=== PATIENT | male | born 1955 | race Caucasian/White ===

== ENCOUNTER → 2016-08-23 | Outpatient (CLI) | payer OTHER ==
[2016-08-23 17:48] LABS: HEMATOCRIT 44.5 % (42-52); MEAN CELL VOLUME 89.9 fL (80-100); MEAN CORPUSCULAR HEMOGLOBIN 31.9 pg (25-34); MEAN CORPUSCULAR HGB CONC 35.5 g/dl (32-36); MEAN PLATELET VOLUME 10.8 fL (7.4-10.4); PLATELET COUNT 186 K/uL (130-400); RED BLOOD COUNT 4.95 M/uL (4.7-6.1); WHITE BLOOD COUNT 7.82 K/uL (4.8-10.8)
[2016-08-23 18:08] LABS: ALKALINE PHOSPHATASE 102 U/L (45-117); ALT/SGPT 19 U/L (12-78); AST/SGOT 11 U/L (15-37); BLOOD UREA NITROGEN 8 mg/dl (7-18); BUN/CREATININE RATIO 8.6 (10-20); CARBON DIOXIDE 27 mmol/L (21-32); CHLORIDE 106 mmol/L (98-107); CREATININE 0.96 mg/dl (0.60-1.40); GLUCOSE 101 mg/dl (70-99); POTASSIUM 3.9 mmol/L (3.5-5.1); SODIUM 139 mmol/L (136-145)
[2016-08-23 18:11] LABS: THYROID STIMULATING HORMONE 0.751 uIu/ml (0.300-4.500)
== END | disposition home or self-care (01) ==
LOC: C.LABMFLN 14:02
PROVIDERS: ATTEND Internal Medicine Cardiovascular Disease
DX: I47.2 Ventricular tachycardia (principal); I49.8 Other specified cardiac arrhythmias; I25.5 Ischemic cardiomyopathy; I25.10 Atherosclerotic heart disease of native coronary artery without angina pectoris; E78.5 Hyperlipidemia, unspecified

== ENCOUNTER 2021-04-17 12:15 | Inpatient (IN) ==
--- NOTE | 2021-04-17 12:45 | Emergency Department Note ---
History of Present Illness General Chief complaint: Abdominal Pain Stated complaint: MASS NEAR PANCREAS, ABDOMINAL PAIN Time Seen by Provider: 04/17/21 12:39 Source: patient Mode of arrival: ambulatory Limitations: no limitations History of Present Illness Maximum Pain Intensity: 1 This patient is a 66-year-old male who presents to the emergency department for evaluation of a pancreatic mass found on outpatient CT. The patient states that over the past 1 month, he has noticed that his stools have been pale in color and floating. He has also noticed about a 20 lb weight loss as well as fatigue, nausea, and decreased appetite. He denies any abdominal pain until today after eating breakfast, when he noticed some upper abdominal pain. He saw his PCP yesterday, who ordered labs and a CT scan. He received a call that the CT showed a mass near his pancreas. He does state that some other people have noticed his skin has been more yellow in color over the past week. He reports a cardiac history. He states he quit drinking alcohol 1 month ago, but prior to that drank 4-5 drinks a few times a week. Home Medications Medication Instructions Recorded Confirmed Type aspirin 81 mg tablet,delayed 81 mg PO DAILY #90 tab 11/10/20 04/17/21 Rx release (Ecotrin Low Strength) atorvastatin 80 mg tablet 80 mg PO DAILY #90 tab 11/10/20 04/17/21 Rx nitroglycerin 0.4 mg sublingual 0.4 mg SL Q5M PRN #20 tab 11/10/20 04/17/21 Rx tablet (Nitrostat) sacubitril 24 mg-valsartan 26 mg 1 tab PO BID #180 tab 11/10/20 04/17/21 Rx tablet (Entresto) ticagrelor 90 mg tablet (Brilinta) 90 mg PO BID #180 tab 11/10/20 04/17/21 Rx Allergies Allergy/AdvReac Type Severity Reaction Status Date / Time No Known Drug Allergies Allergy Verified 04/17/21 15:08 Past Med/Surg History Medical History Acute ST elevation myocardial infarction (STEMI) involving left anterior descending coronary artery AIVR (accelerated idioventricular rhythm) CAD (coronary artery disease) Carpal tunnel syndrome Displacement of cervical intervertebral disc without myelopathy Dyslipidemia Hearing loss, bilateral Ischemic cardiomyopathy Ventricular tachycardia Surgical History H/O cardiac catheterization History of appendectomy Hx of colonoscopy S/P coronary artery stent placement Family History Mother Myocardial infarction Diabetes Father Colorectal cancer Diabetes Social History Smoking Status: Current every day smoker Tobacco Type: Cigarettes Cigarettes Per Day: 40; Second Hand Exposure: Yes; Do You Dip or Chew Tobacco: No; Hx Alcohol Use: Yes Hx Substance Use: No Preferred Language: Turkish Communication Ability: Effective Black Top Roller Required: No Beliefs That Will Affect Care: None marital status: Single Current Living Situation: Alone current occupational status: employed 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 Feels Safe at Home: Yes Safety Concerns: Feels Safe At This Time Childhood Exposure to Second-Hand Smoke: Yes Dental Care, Regularly: Yes Sunscreen Use: No Assistive Devices: None Review of Systems A total of 10 systems reviewed and were otherwise negative Physical Exam Vital Signs Vital Signs - 24 hr 04/17/21 12:24 Temperature 37 C Temperature Source Temporal Artery Scan Pulse Rate 75 Respiratory Rate 18 Blood Pressure 108/56 L Blood Pressure Mean 73 Blood Pressure Position Sitting Pulse Oximetry 99 Oxygen Delivery Method Room Air Sepsis Recent Fever Within 48 Hours No Sepsis New/Unexplained Change in Mental Status No Sepsis Action Taken by Nursing No Action Required VITALS: Vitals are noted on the nurse's note and reviewed by myself. Vital signs stable. GENERAL: This is a 66-year-old male, cachectic appearing. SKIN: Jaundice noted. EARS: External auditory canals clear, tympanic membranes pearly serrato without erythema or effusion bilaterally. EYES: Pupils equal round and reactive to light and accommodation. Scleral icterus noted. MOUTH: Mucous membranes moist. NECK: Supple without nuchal rigidity. No lymphadenopathy. HEART: Regular rate and rhythm without murmurs gallops or rubs. LUNGS: Clear to auscultation bilaterally without wheezes, rales or rhonchi. ABDOMEN: Positive bowel sounds x 4. Soft, nontender to palpation. NEURO: Patient was alert and oriented to person place and time. Course Administered Medications Aspirin (Aspirin 81 Mg Ectab) 81 mg PO DAILY FAIZAN Stop: 05/18/21 08:59 Last Admin: 04/18/21 08:01 Dose: 81 mg Documented by: [id number] Enoxaparin Sodium (Enoxaparin Inj 40 Mg/0.4 Ml Syr) 40 mg SQ Q24H [facility] Stop: 05/17/21 19:14 Last Admin: 04/17/21 20:09 Dose: 40 mg Documented by: [id number] Miscellaneous (Remove Nicoderm Patch) 1 ea N/A DAILY@[id number] [facility] Stop: 05/18/21 08:58 Last Admin: 04/18/21 11:30 Dose: 1 ea Documented by: [id number] Nicotine (Nicotine 21 Mg/24 Hr Tdsy) 21 mg TD QAM [facility] Stop: 05/17/21 16:14 Last Admin: 04/18/21 11:29 Dose: 21 mg Documented by: [id number] Admin: 04/17/21 16:35 Dose: 21 mg Documented by: [id number] Sacubitril/Valsartan (Valsartan/Sacubitril 26/24mg Tab) 1 tab PO BID [facility] Stop: 05/17/21 20:59 Last Admin: 04/18/21 08:02 Dose: 1 tab Documented by: [id number] Admin: 04/17/21 20:09 Dose: 1 tab Documented by: [id number] Ticagrelor (Ticagrelor 90 Mg Tab) 90 mg PO BID [facility] Stop: 05/17/21 20:59 Last Admin: 04/18/21 08:02 Dose: 90 mg Documented by: [id number] Admin: 04/17/21 20:09 Dose: 90 mg Documented by: [id number] Discontinued Medications Ioversol (Optiray 320 100ml) 94 ml IV ONCE ONE Stop: 04/17/21 15:41 Last Admin: 04/17/21 15:42 Dose: 94 ml Documented by: [id number] Medical Decision Making Differential Diagnosis Differential diagnosis includes malignancy, pancreatitis, infection, cholecystitis, ascending cholangitis, among others. Home Medications Current Medication List: was personally reviewed by me Laboratory Data Attestation: I reviewed the patient's lab results. Result diagrams: 04/18/21 07:56 04/18/21 07:56 Lab Results 04/17/21 04/17/21 04/17/21 Range/Units 12:56 12:56 12:56 WBC 5.80 (4.8-10.8) K/uL RBC 3.75 L (4.7-6.1) M/uL Hgb 11.6 L (14.0-18.0) g/dL Hct 34.3 L (42-52) % MCV 91.5 (80-100) fL MCH 30.9 (25-34) pg MCHC 33.8 (32-36) g/dL RDW Std Deviation 56.2 H (36.4-46.3) fL RDW Coeff of Lyubov 16.9 H (11.5-14.5) % Plt Count 221 (130-400) K/uL MPV 11.7 H (7.4-10.4) fL Immature Gran % (Auto) 0.2 % Neut % (Auto) 74.8 % Lymph % (Auto) 20.2 % Foster % (Auto) 2.9 % Eos % (Auto) 1.4 % Baso % (Auto) 0.5 % Neut # (Auto) 4.34 (1.4-6.5) K/uL Lymph # (Auto) 1.17 L (1.2-3.4) K/uL Foster # (Auto) 0.17 (0.11-0.59) K/uL Eos # (Auto) 0.08 (0-0.5) K/uL Baso # (Auto) 0.03 (0-0.2) K/uL Immature Gran # (Auto) 0.01 (0.00-0.02) K/uL PT Cancelled INR Cancelled APTT Cancelled PTT Ratio Cancelled Sodium Cancelled Potassium Cancelled Chloride Cancelled Carbon Dioxide Cancelled Anion Gap Cancelled BUN Cancelled Creatinine Cancelled Est Cr Clr Drug Dosing Cancelled Est GFR ( Amer) Cancelled Est GFR (Non-Af Amer) Cancelled BUN/Creatinine Ratio Cancelled Glucose Cancelled Osmolality (280-300) mOsm/kg Calcium Cancelled Total Bilirubin Cancelled Direct Bilirubin Cancelled AST Cancelled ALT Cancelled Alkaline Phosphatase Cancelled Total Protein Cancelled Albumin Cancelled Lipase Cancelled Urine Color Urine Appearance (Clear) Urine pH (4.5-7.5) Ur Specific [place] (1.000-1.030) Urine Protein (Negative) Urine Glucose (UA) (Negative) Urine Ketones (Negative) Urine Blood (Negative) Urine Nitrite (Negative) Urine Bilirubin (Negative) Urine Urobilinogen (Negative) Ur Leukocyte Esterase (Negative) Urine RBC (0-4) /hpf Urine WBC (0-5) /hpf Ur Epithelial Cells (0-5) /lpf Urine Bacteria (Negative) 04/17/21 04/17/21 04/17/21 Range/Units 12:56 13:43 13:43 WBC (4.8-10.8) K/uL RBC (4.7-6.1) M/uL Hgb (14.0-18.0) g/dL Hct (42-52) % MCV (80-100) fL MCH (25-34) pg MCHC (32-36) g/dL RDW Std Deviation (36.4-46.3) fL RDW Coeff of Lyubov (11.5-14.5) % Plt Count (130-400) K/uL MPV (7.4-10.4) fL Immature Gran % (Auto) % Neut % (Auto) % Lymph % (Auto) % Foster % (Auto) % Eos % (Auto) % Baso % (Auto) % Neut # (Auto) (1.4-6.5) K/uL Lymph # (Auto) (1.2-3.4) K/uL Foster # (Auto) (0.11-0.59) K/uL Eos # (Auto) (0-0.5) K/uL Baso # (Auto) (0-0.2) K/uL Immature Gran # (Auto) (0.00-0.02) K/uL PT 11.0 INR 1.1 APTT 25.6 PTT Ratio 1.0 Sodium 126 L Potassium Chloride 93 L Carbon Dioxide 24 Anion Gap 9 BUN 15 Creatinine 0.78 Est Cr Clr Drug Dosing 77.5 Est GFR ( Amer) 109.8 Est GFR (Non-Af Amer) 94.7 BUN/Creatinine Ratio 19.2 Glucose 170 H Osmolality (280-300) mOsm/kg Calcium 9.3 Total Bilirubin 21.2 H Direct Bilirubin 12.7 H AST ALT 271 H Alkaline Phosphatase 1500 H Total Protein 6.6 Albumin 3.2 L Lipase Urine Color Jory Urine Appearance Clear (Clear) Urine pH (4.5-7.5) Ur Specific [place] 1.022 (1.000-1.030) Urine Protein (Negative) Urine Glucose (UA) (Negative) Urine Ketones (Negative) Urine Blood (Negative) Urine Nitrite (Negative) Urine Bilirubin (Negative) Urine Urobilinogen (Negative) Ur Leukocyte Esterase (Negative) Urine RBC 0-4 (0-4) /hpf Urine WBC 5-10 H (0-5) /hpf Ur Epithelial Cells 5-10 H (0-5) /lpf Urine Bacteria 1+ H (Negative) 04/17/21 04/17/21 Range/Units 13:43 14:50 WBC (4.8-10.8) K/uL RBC (4.7-6.1) M/uL Hgb (14.0-18.0) g/dL Hct (42-52) % MCV (80-100) fL MCH (25-34) pg MCHC (32-36) g/dL RDW Std Deviation (36.4-46.3) fL RDW Coeff of Lyubov (11.5-14.5) % Plt Count (130-400) K/uL MPV (7.4-10.4) fL Immature Gran % (Auto) % Neut % (Auto) % Lymph % (Auto) % Foster % (Auto) % Eos % (Auto) % Baso % (Auto) % Neut # (Auto) (1.4-6.5) K/uL Lymph # (Auto) (1.2-3.4) K/uL Foster # (Auto) (0.11-0.59) K/uL Eos # (Auto) (0-0.5) K/uL Baso # (Auto) (0-0.2) K/uL Immature Gran # (Auto) (0.00-0.02) K/uL PT INR APTT PTT Ratio Sodium Potassium Cancelled Chloride Carbon Dioxide Anion Gap BUN Creatinine Est Cr Clr Drug Dosing Est GFR ( Amer) Est GFR (Non-Af Amer) BUN/Creatinine Ratio Glucose Osmolality 287 (280-300) mOsm/kg Calcium Total Bilirubin Direct Bilirubin AST Cancelled ALT Alkaline Phosphatase Total Protein Albumin Lipase Cancelled Urine Color Urine Appearance (Clear) Urine pH (4.5-7.5) Ur Specific [place] (1.000-1.030) Urine Protein (Negative) Urine Glucose (UA) (Negative) Urine Ketones (Negative) Urine Blood (Negative) Urine Nitrite (Negative) Urine Bilirubin (Negative) Urine Urobilinogen (Negative) Ur Leukocyte Esterase (Negative) Urine RBC (0-4) /hpf Urine WBC (0-5) /hpf Ur Epithelial Cells (0-5) /lpf Urine Bacteria (Negative) Imaging Data Attestation: I personally reviewed and interpreted this imaging study as follows: Radiologist's Impression: ABDOMEN AND PELVIS CT WITH IV CONTRAST CT DOSE: 472.54 mGy.cm HISTORY: Acutely elevated LFTs. Reported pancreatic head mass. Elevated LFTs, pancreatic mass seen on noncon CT TECHNIQUE: Multiaxial CT images of the abdomen and pelvis were performed following the IV administration of 94 cc of Optiray, A dose lowering technique was utilized adhering to the principles of ALARA. COMPARISON STUDY: Chest CT of same day FINDINGS: Mural fibrofatty changes with myocardial thinning of the left ventricular apex. Coronary artery calcifications. Mild subsegmental bibasilar atelectasis. No pneumatosis or pneumoperitoneum. Unremarkable spleen. Bilateral renal gland thickening suggestive of hyperplasia. There is marked intrahepatic and extrahepatic biliary ductal dilation with the common bile duct measuring up to 2 cm transversely. The gallbladder is distended with mild wall thickening. No hepatic mass identified. Patency of the hepatic and portal veins. There is an ill-defined hypodense pancreatic head mass measuring approximately 2.0 x 1.6 x 1.7 cm on image 110 series 7. This obstructs the pancreatic and common bile ducts. Extreme pancreatic ductal dilation measures 7 mm. Mildly prominent portacaval lymph nodes measure up to 10 mm. There is a 1.3 x 1.1 cm gastrohepatic lymph node. Mild narrowing of the portal splenic confluence at the level of the pancreatic head mass without occlusion. The mass does not involve the superior mesenteric artery. There is mild peripancreatic and lesser sac edema. Unremarkable kidneys. No hydronephrosis. Mild circumferential urinary bladder wall thickening with perivesicular stranding. Prostamegaly. Atherosclerosis of the aorta without aneurysm. Unremarkable IVC. No bowel obstruction. Mild distention of the stomach. Wall thickening of the sigmoid and rectum with partial distention. Mild fecal retention. The appendix is reportedly surgically absent. Mild generalized body wall edema. No acute fracture or suspicious bone lesion identified. Moderate osteoarthritis of the hips. Bilateral os acetabula. IMPRESSION: 1. Ill-defined hypodense pancreatic head mass measuring up to 2 cm is suggestive of adenocarcinoma. This results in obstruction of the pancreatic and common bile ducts. No evidence of vascular encasement or occlusion. Gastroenterology consultation with ERCP and tissue sampling recommended. 2. Mildly enlarged portacaval and gastrohepatic adenopathy, suspicious for metastatic disease. 3. Additional findings as above. CT chest diagnostic w con CLINICAL HISTORY: Pancreatic mass on outpatient ct TECHNIQUE: Multidetector row helical CT of the chest was performed. Coronal and sagittal reformations were obtained. Automated dose lowering techniques and/or adjustment according to patient size were utilized for this exam. Comparison: None available at the time of this dictation. FINDINGS: Lungs and pleura: Atelectasis versus scarring is seen in the dependent portions of the lungs. Biapical scarring and diffuse emphysematous changes are seen. Intraparenchymal lymph nodes are noted in the fissures. There are a few tiny pulmonary nodules measuring 4 mm in the right upper lobe (series 6 image 60) and 3 mm in the right upper lobe (image 81). Heart and pericardium: Cardiomegaly is seen with biatrial enlargement. Vessels: The pulmonary trunk is enlarged measuring 31 mm in diameter. No evidence of pulmonary embolism within the limits of a noncontrast exam. Mediastinum and cami: Subcentimeter lymph nodes are seen. Chest wall and lower neck: Unremarkable. Abdomen: For findings below the diaphragm, please refer to CT of the abdomen dated the same. Bones: Degenerative changes in the thoracic spine. IMPRESSION: 1. A few pulmonary nodules are seen measuring up to 4 mm. 2. No lymphadenopathy is seen. 3. Emphysema and pulmonary hypertension. MDM Narrative Continuous hall monitor: Order was placed for continuous hall monitor. Patient was placed on the hall monitor. Patient was noted to be in a normal sinus rhythm at an initial rate of 70 bpm. The patient is a 66-year-old male who presents today for further evaluation of a pancreatic mass found on outpatient CT. Patient presented to his PCP yesterday with pale and floating stools as well as weight loss and jaundice. He had a noncontrast CT of the abdomen/pelvis which showed a tumor of the pancreatic head. CT of the abdomen/pelvis and chest with IV contrast were performed today and do show a pancreatic tumor consistent with adenocarcinoma as well as evidence of metastasis. Patient has elevated LFTs, with total bilirubin 21.2. He is hyponatremic. GI was consulted and advised keeping the patient n.p.o. after midnight for possible EUS/ERCP tomorrow. Case was discussed with the [facility] service for admission. Impression & Plan Pancreatic mass Discharge Plan Visit Data Chief Complaint: Abdominal Pain Stated Complaint: MASS NEAR PANCREAS, ABDOMINAL PAIN ED Provider: Dom Penn ED Midlevel Provider: Marzena Hinkle Discharge Problem: Pancreatic mass Patient Disposition: Admitted As Inpatient Discharge Instructions Interventions: ED Discharge Assessment Last Done: 04/17/21 18:01
[2021-04-17 13:18] LABS: Basophils # (auto) 0.03 K/uL (0-0.2); Basophils % (auto) 0.5 %; Eosinophils # (auto) 0.08 K/uL (0-0.5); Eosinophils % (auto) 1.4 %; Hematocrit (blood only) 34.3 % (42-52); Hemoglobin 11.6 g/dL (14.0-18.0); Immature Granulocytes # (auto) 0.01 K/uL (0.00-0.02); Immature Granulocytes % (auto) 0.2 %; Lymphocytes # (auto) 1.17 K/uL (1.2-3.4); Lymphocytes % (auto) 20.2 %; Mean Corpuscular Hemoglobin 30.9 pg (25-34); Mean Corpuscular Hgb Conc 33.8 g/dL (32-36); Mean Corpuscular Volume 91.5 fL (80-100); Mean Platelet Volume 11.7 fL (7.4-10.4); Monocytes # (auto) 0.17 K/uL (0.11-0.59); Monocytes % (auto) 2.9 %; Neutrophils # (auto) 4.34 K/uL (1.4-6.5); Neutrophils % (auto) 74.8 %; Platelet Count 221 K/uL (130-400); RDW Coefficient of Variation 16.9 % (11.5-14.5); RDW Standard Deviation 56.2 fL (36.4-46.3); Red Blood Count 3.75 M/uL (4.7-6.1)
[2021-04-17 13:23] LABS: Appearance Urine Clear (Clear); Color Urine Amber
[2021-04-17 13:24] LABS: Specific Gravity Urine 1.022 (1.000-1.030)
[2021-04-17 13:43] LABS: RBC Urine 0-4 /hpf (0-4)
[2021-04-17 13:44] LABS: Bacteria Urine 1+ (Negative)
[2021-04-17 14:10] LABS: INR 1.1 (0.9-1.1); Partial Thromboplastin Time 25.6 Seconds (21.0-31.0)
[2021-04-17 14:39] LABS: Albumin Level 3.2 gm/dl (3.4-5.0); BUN Creatinine Ratio 19.2 (10-20); Bilirubin,Total 21.2 mg/dl (0.2-1.0); Calcium 9.3 mg/dl (8.5-10.1); Creatinine Clr Calc Pharmacy 77.5 ml/min; Est GFR (African American) 109.8 ml/min; Est GFR (Non-African American) 94.7 ml/min; Total Protein 6.6 gm/dl (6.0-8.3)
--- NOTE | 2021-04-17 14:39 | Emergency Department Note ---
ED Visit Note I have personally seen and evaluated the patient with the physician pediatric physical therapy assistant. I agree with the diagnostic/management decisions and have personally been involved in these decisions and agree with the diagnosis. .
[2021-04-17 15:16] LABS: Bilirubin Direct 12.7 mg/dl (0-0.2)
[2021-04-17] MEDS ORDERED: OPTIRAY 320 100ml IV ONE (15:40)
--- NOTE | 2021-04-17 15:47 | History & Physical Report ---
Date of Service April 17, 2021 Assessment & Plan (1) Pancreatic mass: Plan: - -GI consulted regarding CBD, PD obstruction 2/2 pancreatic mass, appreciate their recommendations. (2) Hyponatremia: Plan: -Na+ 126 today, patient asymptomatic. No nausea, vomiting, weakness, lethargy, confusion. -Suspect due to SIADH of malignancy -We will fluid restrict for now, recheck BMP in a.m. Serum osmolality, urine sodium, urine osmolality pending (3) CAD (coronary artery disease): Plan: -s/p (4) Dyslipidemia: (5) Hyperglycemia: Plan: -Elevated at 170 on a reportedly fasting BMP, without the diagnosis of diabetes. -Continue to monitor. (6) Tobacco abuse: Plan: -Nicotine patch ordered. -Counseled on smoking cessation. History of Present Illness Chief Complaint: abdominal mass on outpatient CT Primary Care Provider: Cade Deal MD Patient is a 66-year-old male with a past medical history of CAD, ischemic cardiomyopathy, tobacco use and alcohol use who presents today for evaluation of pancreatic mass found on an outpatient CT. Over the past month, patient has experienced extreme fatigue, a 20 pound weight loss, as well as frequent pale, floating stools and dark urine. He also reports an occasional throbbing pain in his left upper quadrant after meals. Friends also pointed out that his skin and eyes seemed to be yellow. This had prompted him to schedule a visit with his PCP who ordered an abdominal CT without contrast as well as several labs yesterday, 04/16. Patient received a call from PCP last evening that there is a pancreatic mass seen on scan and was referred to the ED for further evaluation. A repeat abdominal CT with contrast was performed in the ED revealed an ill- defined hypodense pancreatic head mass measuring up to 2 cm, suggestive of adenocarcinoma. This results in obstruction of the pancreatic and common bile ducts. No evidence of vascular encasement or occlusion. Gastroenterology consultation with ERCP and tissue sampling recommended. Mildly enlarged hawk caval gastropathic adenopathy, suspicious for metastatic disease. Chest CT was also ordered, which revealed a few pulmonary nodules seen measuring up to 4 mm, no lymphadenopathy seen, emphysema and pulmonary hypertension noted. Patient smokes 1 to 2 packs of cigarettes per day and had previously been drinking 3-4 drinks on most evenings, however has not had a drink in 1 month. Allergies Allergy/AdvReac Type Severity Reaction Status Date / Time No Known Drug Allergies Allergy Verified 04/17/21 15:08 Home Medications Medication Instructions Recorded Confirmed Type aspirin 81 mg tablet,delayed 81 mg PO DAILY #90 tab 11/10/20 04/17/21 Rx release (Ecotrin Low Strength) atorvastatin 80 mg tablet 80 mg PO DAILY #90 tab 11/10/20 04/17/21 Rx nitroglycerin 0.4 mg sublingual 0.4 mg SL Q5M PRN #20 tab 11/10/20 04/17/21 Rx tablet (Nitrostat) sacubitril 24 mg-valsartan 26 mg 1 tab PO BID #180 tab 11/10/20 04/17/21 Rx tablet (Entresto) ticagrelor 90 mg tablet (Brilinta) 90 mg PO BID #180 tab 11/10/20 04/17/21 Rx Past Med/Surg History Medical History Acute ST elevation myocardial infarction (STEMI) involving left anterior descending coronary artery AIVR (accelerated idioventricular rhythm) CAD (coronary artery disease) Carpal tunnel syndrome Displacement of cervical intervertebral disc without myelopathy Dyslipidemia Hearing loss, bilateral Ischemic cardiomyopathy Ventricular tachycardia Surgical History H/O cardiac catheterization History of appendectomy Hx of colonoscopy S/P coronary artery stent placement Family History Mother Myocardial infarction Diabetes Father Colorectal cancer Diabetes Social History Smoking Status: Current every day smoker Tobacco Type: Cigarettes Second Hand Exposure: No; Hx Alcohol Use: Yes Hx Substance Use: No Preferred Language: Thai Communication Ability: Effective [employer] Director Required: No Beliefs That Will Affect Care: None marital status: Single Current Living Situation: Alone current occupational status: employed 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 Feels Safe at Home: Yes Childhood Exposure to Second-Hand Smoke: Yes Dental Care, Regularly: Yes Sunscreen Use: No Review of Systems Review of Systems: Constitutional: Reports generalized fatigue over the past month; no fever, sweats or chills Eyes: No diplopia, no worsening or blurred vision ENT: normal hearing, no trouble swallowing Respiratory: No cough, sputum, dyspnea at rest or on exertion Cardiovascular: No chest pain, tightness or palpitations Abdomen: Reports postprandial discomfort, zaid colored stools, and dark urine; no pain, nausea, or vomiting Musculoskeletal: No joint pain, calf pain, swelling Neurologic: No weakness, numbness/tingling, or balance problems Psychiatric: No anxiety or depression Skin: Jaundice in the past week; no rash Physical Exam Physical Exam: General: overt jaundice and icterus; awake, alert, no apparent distress Head: Normocephalic, atraumatic ENT: Icterus present, PERRL, EOMI, no pharyngeal exudate, mucous membranes moist Chest: Clear to auscultation, on room air, no adventitious breath sounds Cardiac: Regular rate and rhythm, no murmur, no JVD, normal peripheral pulses, good capillary refill Abdominal: NABS x 4 quadrants, soft, nontender to palpation, no rebound, guarding or tenderness Extremities: Normal inspection, no peripheral edema or erythema, calfs nontender to palpation Psych: Normal mood and affect Neuro: AAO x 3, strength intact bilaterally and rated 5/5, no motor deficits, speech is clear, no peripheral sensory deficits Skin: Overt jaundice Results & Data Results & Data ([facility]) Vital Signs (Past 12 Hours) Vital Signs Temp Pulse Pulse Resp BP BP Pulse Ox 04/17/21 13:48 74 17 106/59 L 100 04/17/21 12:24 37 C 75 18 108/56 L 99 Laboratory Results Abnormal lab results 04/17/21 04/17/21 04/17/21 Range/Units 12:56 12:56 13:43 RBC 3.75 L (4.7-6.1) M/uL Hgb 11.6 L (14.0-18.0) g/dL Hct 34.3 L (42-52) % RDW Std Deviation 56.2 H (36.4-46.3) fL RDW Coeff of Lyubov 16.9 H (11.5-14.5) % MPV 11.7 H (7.4-10.4) fL Lymph # (Auto) 1.17 L (1.2-3.4) K/uL Sodium 126 L (136-145) mmol/L Chloride 93 L (98-107) mmol/L Glucose 170 H (70-99(Fasting)) mg/dl Total Bilirubin 21.2 H (0.2-1.0) mg/dl Direct Bilirubin 12.7 H (0-0.2) mg/dl ALT 271 H (7-52) U/L Alkaline Phosphatase 1500 H (34-104) U/L Albumin 3.2 L (3.4-5.0) gm/dl Urine WBC 5-10 H (0-5) /hpf Ur Epithelial Cells 5-10 H (0-5) /lpf Urine Bacteria 1+ H (Negative) Diagnostic Findings Abdomen/Pelvis CT 04/17/21 12:[address] WITH IV CONTRAST CT DOSE: 472.54 mGy.cm HISTORY: Acutely elevated LFTs. Reported pancreatic head mass. Elevated LFTs, p ancreatic mass seen on noncon CT TECHNIQUE: Multiaxial CT images of the abdomen and pelvis were performed following the IV administration of 94 cc of Optiray, A dose lowering technique was utilized adhering to the principles of ALARA. COMPARISON STUDY: Chest CT of same day FINDINGS: Mural fibrofatty changes with myocardial thinning of the left ventricular apex. Coronary artery calcifications. Mild subsegmental bibasilar atelectasis. No pneumatosis or pneumoperitoneum. Unremarkable spleen. Bilateral renal gland thickening suggestive of hyperplasia. There is marked intrahepatic and extrahepatic biliary ductal dilation with the common bile duct measuring up to 2 cm transversely. The gallbladder is distended with mild wall thickening. No hepatic mass identified. Patency of the hepatic and portal veins. There is an ill-defined hypodense pancreatic head mass measuring approximately 2.0 x 1.6 x 1.7 cm on image 110 series 7. This obstructs the pancreatic and common bile ducts. Extreme pancreatic ductal dilation measures 7 mm. Mildly prominent portacaval lymph nodes measure up to 10 mm. There is a 1.3 x 1.1 cm gastrohepatic lymph node. Mild narrowing of the portal splenic confluence at the level of the pancreatic head mass without occlusion. The mass does not involve the superior mesenteric artery. There is mild peripancreatic and lesser sac edema. Unremarkable kidneys. No hydronephrosis. Mild circumferential urinary bladder wall thickening with perivesicular stranding. Prostamegaly. Atherosclerosis of the aorta without aneurysm. Unremarkable IVC. No bowel obstruction. Mild distention of the stomach. Wall thickening of the sigmoid and rectum with partial distention. Mild fecal retention. The appendix is reportedly surgically absent. Mild generalized body wall edema. No acute fracture or suspicious bone lesion identified. Moderate osteoarthritis of the hips. Bilateral os acetabula. IMPRESSION: 1. Ill-defined hypodense pancreatic head mass measuring up to 2 cm is suggestive of adenocarcinoma. This results in obstruction of the pancreatic and common bile ducts. No evidence of vascular encasement or occlusion. Gastroenterology consultation with ERCP and tissue sampling recommended. 2. Mildly enlarged portacaval and gastrohepatic adenopathy, suspicious for metastatic disease. 3. Additional findings as above. ACT 112: Negative or not required by law. The above report was generated using voice recognition software. It may contain grammatical, syntax or spelling errors. Electronically signed by: Jacoby Adler M.D. 04/17/2021 4:[address] 04/17/21 12:59 CT chest diagnostic w con CLINICAL HISTORY: Pancreatic mass on outpatient ct TECHNIQUE: Multidetector row helical CT of the chest was performed. Coronal and sagittal reformations were obtained. Automated dose lowering techniques and/or adjustment according to patient size were utilized for this exam. Comparison: None available at the time of this dictation. FINDINGS: Lungs and pleura: Atelectasis versus scarring is seen in the dependent portions of the lungs. Biapical scarring and diffuse emphysematous changes are seen. Intraparenchymal lymph nodes are noted in the fissures. There are a few tiny pulmonary nodules measuring 4 mm in the right upper lobe (series 6 image 60) and 3 mm in the right upper lobe (image 81). Heart and pericardium: Cardiomegaly is seen with biatrial enlargement. Vessels: The pulmonary trunk is enlarged measuring 31 mm in diameter. No evidence of pulmonary embolism within the limits of a noncontrast exam. Mediastinum and cami: Subcentimeter lymph nodes are seen. Chest wall and lower neck: Unremarkable. Abdomen: For findings below the diaphragm, please refer to CT of the abdomen dated the same. Bones: Degenerative changes in the thoracic spine. IMPRESSION: 1. A few pulmonary nodules are seen measuring up to 4 mm. 2. No lymphadenopathy is seen. 3. Emphysema and pulmonary hypertension. Medications Administered Current Medications Miscellaneous (Remove Nicoderm Patch) 1 ea N/A [id number] [facility] Stop: 05/18/21 08:58 Nicotine (Nicotine 21 Mg/24 Hr Tdsy) 21 mg TD QAM [facility] Stop: 05/17/21 16:14 Code Status & VTE Plan Code Status Full code Supervising Physician Co-Signing Physician Notes Patient seen and examined, chart reviewed, case discussed with Kasie Ribeiro and I agree with the assessment and plan as above except as otherwise noted General: A&Ox3. NAD. Cooperative. Severe jaundice, scleral icterus is present. HEENT: Atraumatic, normocephalic. Vision/hearing grossly intact. Pulm: CTAB A&P. -wheezes, -rales, -rhonchi. Symmetrical chest rise. No increase in work of breathing. No respiratory distress. Cardiac: RRR, -mrg. Radial pulses intact and symmetrical. Abdominal: Nontender, nondistended, soft. BS present. Labs and images reviewed Dom is a 66-year-old male who presented to the emergency department with concern of pale floating stools and to was found to have 20 pound weight loss, nausea, decreased appetite, and jaundice. Outpatient CT showed pancreatic mass, he is urged for additional treatment with profound transaminitis. No alcohol use in the previous month. CTA/P with contrast during ER work-up shows ill- defined hypodense pancreatic head mass measuring up to 2 cm consistent with adenocarcinoma, patient has obstruction of the pancreatic and common bile ducts consistent with profound transaminitis and hyperbilirubinemia appreciated (T bili 21, AST greater than 388, ALT 271, alk phos 1500). GI has been consulted for ERCP plus/minus EUS. CT of the chest does show pulmonary nodules measuring up to 4 mm. Agree with plan/management as above, n.p.o. pending procedural intervention. PG Care Time/CCT Total # of Minutes Spent Total Time Spent with Patient: Total time spent is greater than 50% in coordination of care (as documented) at patient's floor/unit and/or counseling patient: Coding Level of Care Code None Diagnoses Dyslipidemia E78.5 CAD (coronary artery disease) I25.10 Hyponatremia E87.1 Pancreatic mass K86.89 Tobacco abuse Z72.0 Hyperglycemia R73.9
--- NOTE | 2021-04-17 16:04 | CT Scan Report ---
ABDOMEN AND PELVIS CT WITH IV CONTRAST CT DOSE: 472.54 mGy.cm HISTORY: Acutely elevated LFTs. Reported pancreatic head mass. Elevated LFTs, pancreatic mass seen o n noncon CT TECHNIQUE: Multiaxial CT images of the abdomen and pelvis were performed following the IV administrat ion of 94 cc of Optiray, A dose lowering technique was utilized adhering to the principles of ALARA. COMPARISON STUDY: Chest CT of same day FINDINGS: Mural fibrofatty changes with myocardial thinning of the left ventricular apex. Coronary ar walt calcifications. Mild subsegmental bibasilar atelectasis. No pneumatosis or pneumoperitoneum. Unr emarkable spleen. Bilateral renal gland thickening suggestive of hyperplasia. There is marked intrahe patic and extrahepatic biliary ductal dilation with the common bile duct measuring up to 2 cm transve rsely. The gallbladder is distended with mild wall thickening. No hepatic mass identified. Patency of the hepatic and portal veins. There is an ill-defined hypodense pancreatic head mass measuring approximately 2.0 x 1.6 x 1.7 cm on image 110 series 7. This obstructs the pancreatic and common bile ducts. Extreme pancreatic ductal di lation measures 7 mm. Mildly prominent portacaval lymph nodes measure up to 10 mm. There is a 1.3 x 1 .1 cm gastrohepatic lymph node. Mild narrowing of the portal splenic confluence at the level of the p ancreatic head mass without occlusion. The mass does not involve the superior mesenteric artery. Ther e is mild peripancreatic and lesser sac edema. Unremarkable kidneys. No hydronephrosis. Mild circumferential urinary bladder wall thickening with pe rivesicular stranding. Prostamegaly. Atherosclerosis of the aorta without aneurysm. Unremarkable IVC. No bowel obstruction. Mild distention of the stomach. Wall thickening of the sigmoid and rectum with partial distention. Mild fecal retention. The appendix is reportedly surgically absent. Mild general ized body wall edema. No acute fracture or suspicious bone lesion identified. Moderate osteoarthritis of the hips. Bilateral os acetabula. IMPRESSION: 1. Ill-defined hypodense pancreatic head mass measuring up to 2 cm is suggestive of adenocarcinoma. T his results in obstruction of the pancreatic and common bile ducts. No evidence of vascular encasemen t or occlusion. Gastroenterology consultation with ERCP and tissue sampling recommended. 2. Mildly enlarged portacaval and gastrohepatic adenopathy, suspicious for metastatic disease. 3. Additional findings as above. ACT 112: Negative or not required by law. The above report was generated using voice recognition software. It may contain grammatical, syntax o r spelling errors. Electronically signed by: Jacoby Adler M.D. 04/17/2021 4:02 PM
--- NOTE | 2021-04-17 16:07 | CT Scan Report ---
CT chest diagnostic w con CLINICAL HISTORY: Pancreatic mass on outpatient ct TECHNIQUE: Multidetector row helical CT of the chest was performed. Coronal and sagittal reformations were obtained. Automated dose lowering techniques and/or adjustment according to patient size were u tilized for this exam. Comparison: None available at the time of this dictation. FINDINGS: Lungs and pleura: Atelectasis versus scarring is seen in the dependent portions of the lungs. Biapica l scarring and diffuse emphysematous changes are seen. Intraparenchymal lymph nodes are noted in the fissures. There are a few tiny pulmonary nodules measuring 4 mm in the right upper lobe (series 6 lisandra ge 60) and 3 mm in the right upper lobe (image 81). Heart and pericardium: Cardiomegaly is seen with biatrial enlargement. Vessels: The pulmonary trunk is enlarged measuring 31 mm in diameter. No evidence of pulmonary emboli sm within the limits of a noncontrast exam. Mediastinum and cami: Subcentimeter lymph nodes are seen. Chest wall and lower neck: Unremarkable. Abdomen: For findings below the diaphragm, please refer to CT of the abdomen dated the same. Bones: Degenerative changes in the thoracic spine. IMPRESSION: 1. A few pulmonary nodules are seen measuring up to 4 mm. 2. No lymphadenopathy is seen. 3. Emphysema and pulmonary hypertension. ACT 112: Negative or not required by law. Electronically signed by: Ryland Ross M.D. 04/17/2021 4:06 PM
[2021-04-17] MEDS: NICOTINE 21 MG/24 HR TDSY TD SCH (16:35)
[2021-04-17] MEDS ORDERED: NITROGLYCERIN SL 0.4 MG/TAB TAB SL PRN (18:11)
[2021-04-17] MEDS ORDERED: ACETAMINOPHEN 325 MG TAB PO PRN (18:11)
[2021-04-17] MEDS ORDERED: ONDANSETRON INJ 2 MG/ML 2 ML VIAL IV PRN (18:11)
[2021-04-17] MEDS ORDERED: POLYETHYLENE (MIRALAX) 17 GM PACK PO PRN (18:11)
[2021-04-17] MEDS: TICAGRELOR 90 MG TAB PO SCH (20:09)
[2021-04-17] MEDS: VALSARTAN/SACUBITRIL 26/24MG TAB PO SCH (20:09)
[2021-04-17] MEDS: ENOXAPARIN INJ 40 MG/0.4 ML SYR SQ SCH (20:09)
[2021-04-18] MEDS: ASPIRIN 81 MG ECTAB PO SCH (08:01)
[2021-04-18] MEDS: VALSARTAN/SACUBITRIL 26/24MG TAB PO SCH ×2 (08:02→20:24)
[2021-04-18] MEDS: TICAGRELOR 90 MG TAB PO SCH ×2 (08:02→20:24)
[2021-04-18 08:21] LABS: Basophils # (auto) 0.04 K/uL (0-0.2); Basophils % (auto) 0.8 %; Eosinophils # (auto) 0.13 K/uL (0-0.5); Eosinophils % (auto) 2.5 %; Hematocrit (blood only) 30.2 % (42-52); Hemoglobin 10.1 g/dL (14.0-18.0); Immature Granulocytes # (auto) 0.01 K/uL (0.00-0.02); Immature Granulocytes % (auto) 0.2 %; Lymphocytes # (auto) 0.97 K/uL (1.2-3.4); Lymphocytes % (auto) 18.4 %; Mean Corpuscular Hemoglobin 30.4 pg (25-34); Mean Corpuscular Hgb Conc 33.4 g/dL (32-36); Mean Platelet Volume 11.5 fL (7.4-10.4); Monocytes # (auto) 0.59 K/uL (0.11-0.59); Monocytes % (auto) 11.2 %; Neutrophils # (auto) 3.52 K/uL (1.4-6.5); Neutrophils % (auto) 66.9 %; Platelet Count 184 K/uL (130-400); RDW Coefficient of Variation 16.8 % (11.5-14.5); RDW Standard Deviation 55.5 fL (36.4-46.3); Red Blood Count 3.32 M/uL (4.7-6.1); White Blood Count 5.26 K/uL (4.8-10.8)
--- NOTE | 2021-04-18 08:55 | Gastrointestinal Consultation ---
Date of Consultation April 18, 2021 Assessment & Plan (1) Pancreatic mass: 66 year old male admitted with obstructive jaundice with 2cm pancreatic mass on imaging Can have clear liquids today NPO after midnight Plan for EUS +/- ERCP Friday in the OR, discussed with patient. Thank you for allowing us to participate in the care of this patient. Please call with any acute changes, questions or concerns. Please see addendum below with additional recommendation from my supervising physician. Supervising Physician Co-Signing Physician Notes I have personally seen and examined the patient with MIKE Tai. Her note reflects my exam and findings. I agree with her impression and plan. Will plan on EUS for dx and staging. Cj Varela M.D. History of Present Illness Reason for Consultation: panc mass Requesting Physician: Venkat Attending Physician: Estiven Robledo MD History of Present Illness 66 year old male with history of T2DM, CAD, dyslipidemia, s/p cardiac stenting presenting to the ED with painless jaundice, fatigue, weight loss - GI asked to evaluate for pancreatic mass. Pt was seen and evaluated, chart reviewed. Suggests about 1-2 month he started with severe fatigue, gradual weight loss. About 1-2 weeks ago noted pale, abnormal stools and sought PCP evaluation, recommended ED for evaluation of obstructive jaundice. ETOH social use Denies tobacco prodcuts to me CTAP 2021: Ill-defined hypodense pancreatic head mass measuring up to 2 cm is suggestive of adenocarcinoma. This results in obstruction of the pancreatic and common bile ducts. No evidence of vascular encasement or occlusion. Gastroenterology consultation with ERCP and tissue sampling recommended. Mildly enlarged portacaval and gastrohepatic adenopathy, suspicious for metastatic disease. Additional findings as above. Allergies Allergy/AdvReac Type Severity Reaction Status Date / Time No Known Drug Allergies Allergy Verified 04/17/21 15:08 Home Medications Medication Instructions Recorded Confirmed Type aspirin 81 mg tablet,delayed 81 mg PO DAILY #90 tab 11/10/20 04/17/21 Rx release (Ecotrin Low Strength) atorvastatin 80 mg tablet 80 mg PO DAILY #90 tab 11/10/20 04/17/21 Rx nitroglycerin 0.4 mg sublingual 0.4 mg SL Q5M PRN #20 tab 11/10/20 04/17/21 Rx tablet (Nitrostat) sacubitril 24 mg-valsartan 26 mg 1 tab PO BID #180 tab 11/10/20 04/17/21 Rx tablet (Entresto) ticagrelor 90 mg tablet (Brilinta) 90 mg PO BID #180 tab 11/10/20 04/17/21 Rx Patient History Medical History Acute ST elevation myocardial infarction (STEMI) involving left anterior descending coronary artery AIVR (accelerated idioventricular rhythm) CAD (coronary artery disease) Carpal tunnel syndrome Displacement of cervical intervertebral disc without myelopathy Dyslipidemia Hearing loss, bilateral Ischemic cardiomyopathy Ventricular tachycardia Surgical History H/O cardiac catheterization History of appendectomy Hx of colonoscopy S/P coronary artery stent placement Family History Mother Myocardial infarction Diabetes Father Colorectal cancer Diabetes Social History Smoking Status: Current every day smoker Tobacco Type: Cigarettes Cigarettes Per Day: 40; Second Hand Exposure: Yes; Do You Dip or Chew Tobacco: No; Hx Alcohol Use: Yes Hx Substance Use: No Preferred Language: Trinidadian Communication Ability: Effective Health Education Director Required: No Beliefs That Will Affect Care: None marital status: Single Current Living Situation: Alone current occupational status: employed 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 Feels Safe at Home: Yes Safety Concerns: Feels Safe At This Time Childhood Exposure to Second-Hand Smoke: Yes Dental Care, Regularly: Yes Sunscreen Use: No Assistive Devices: None Review of Systems Review of Systems: All systems reviewed & are unremarkable except as noted in HPI & below Physical Exam Eyes: + icterus Respiratory: normal respiratory effort, lungs clear to auscultation Cardiovascular: Rate/Rhythm: regular rate and regular rhythm Gastrointestinal (Abdomen): normal bowel sounds, soft, nontender, no hepatosplenomegaly Skin: no rashes, warm and dry Results & Data ([facility]) Vital Signs (Past 12 Hours) Vital Signs Temp Pulse Resp BP Pulse Ox 04/17/21 23:23 37.0 C 75 16 101/62 96 Laboratory Results 04/18/21 04/18/21 04/17/21 Range/Units 07:56 07:56 16:38 WBC 5.26 (4.8-10.8) K/uL RBC 3.32 L (4.7-6.1) M/uL Hgb 10.1 L (14.0-18.0) g/dL Hct 30.2 L (42-52) % MCV 91.0 (80-100) fL MCH 30.4 (25-34) pg MCHC 33.4 (32-36) g/dL RDW Std Deviation 55.5 H (36.4-46.3) fL RDW Coeff of Lyubov 16.8 H (11.5-14.5) % Plt Count 184 (130-400) K/uL MPV 11.5 H (7.4-10.4) fL Immature Gran % (Auto) 0.2 % Neut % (Auto) 66.9 % Lymph % (Auto) 18.4 % Bath % (Auto) 11.2 % Eos % (Auto) 2.5 % Baso % (Auto) 0.8 % Neut # (Auto) 3.52 (1.4-6.5) K/uL Lymph # (Auto) 0.97 L (1.2-3.4) K/uL Bath # (Auto) 0.59 (0.11-0.59) K/uL Eos # (Auto) 0.13 (0-0.5) K/uL Baso # (Auto) 0.04 (0-0.2) K/uL Immature Gran # (Auto) 0.01 (0.00-0.02) K/uL PT INR APTT PTT Ratio Sodium Pending Potassium Pending Chloride Pending Carbon Dioxide Pending Anion Gap Pending BUN Pending Creatinine Pending Est Cr Clr Drug Dosing Pending Est GFR ( Amer) Pending Est GFR (Non-Af Amer) Pending BUN/Creatinine Ratio Pending Glucose Pending Osmolality (280-300) mOsm/kg Calcium Pending Total Bilirubin Pending Direct Bilirubin AST Pending ALT Pending Alkaline Phosphatase Pending Total Protein Pending Albumin Pending Globulin Pending Albumin/Globulin Ratio Pending Lipase Urine Color Urine Appearance (Clear) Urine pH (4.5-7.5) Ur Specific [place] (1.000-1.030) Urine Protein (Negative) Urine Glucose (UA) (Negative) Urine Ketones (Negative) Urine Blood (Negative) Urine Nitrite (Negative) Urine Bilirubin (Negative) Urine Urobilinogen (Negative) Ur Leukocyte Esterase (Negative) Urine RBC (0-4) /hpf Urine WBC (0-5) /hpf Ur Epithelial Cells (0-5) /lpf Urine Bacteria (Negative) SARS-CoV-2, RNA, NAAT NEGATIVE (NEGATIVE) 04/17/21 04/17/21 04/17/21 Range/Units 14:50 13:43 13:43 WBC (4.8-10.8) K/uL RBC (4.7-6.1) M/uL Hgb (14.0-18.0) g/dL Hct (42-52) % MCV (80-100) fL MCH (25-34) pg MCHC (32-36) g/dL RDW Std Deviation (36.4-46.3) fL RDW Coeff of Lyubov (11.5-14.5) % Plt Count (130-400) K/uL MPV (7.4-10.4) fL Immature Gran % (Auto) % Neut % (Auto) % Lymph % (Auto) % Bath % (Auto) % Eos % (Auto) % Baso % (Auto) % Neut # (Auto) (1.4-6.5) K/uL Lymph # (Auto) (1.2-3.4) K/uL Bath # (Auto) (0.11-0.59) K/uL Eos # (Auto) (0-0.5) K/uL Baso # (Auto) (0-0.2) K/uL Immature Gran # (Auto) (0.00-0.02) K/uL PT INR APTT PTT Ratio Sodium 126 L Potassium Cancelled Chloride 93 L Carbon Dioxide 24 Anion Gap 9 BUN 15 Creatinine 0.78 Est Cr Clr Drug Dosing 77.5 Est GFR ( Amer) 109.8 Est GFR (Non-Af Amer) 94.7 BUN/Creatinine Ratio 19.2 Glucose 170 H Osmolality 287 (280-300) mOsm/kg Calcium 9.3 Total Bilirubin 21.2 H Direct Bilirubin 12.7 H AST Cancelled ALT 271 H Alkaline Phosphatase 1500 H Total Protein 6.6 Albumin 3.2 L Globulin Albumin/Globulin Ratio Lipase Cancelled Urine Color Urine Appearance (Clear) Urine pH (4.5-7.5) Ur Specific [place] (1.000-1.030) Urine Protein (Negative) Urine Glucose (UA) (Negative) Urine Ketones (Negative) Urine Blood (Negative) Urine Nitrite (Negative) Urine Bilirubin (Negative) Urine Urobilinogen (Negative) Ur Leukocyte Esterase (Negative) Urine RBC (0-4) /hpf Urine WBC (0-5) /hpf Ur Epithelial Cells (0-5) /lpf Urine Bacteria (Negative) SARS-CoV-2, RNA, NAAT (NEGATIVE) 04/17/21 04/17/21 04/17/21 Range/Units 13:43 12:56 12:56 WBC (4.8-10.8) K/uL RBC (4.7-6.1) M/uL Hgb (14.0-18.0) g/dL Hct (42-52) % MCV (80-100) fL MCH (25-34) pg MCHC (32-36) g/dL RDW Std Deviation (36.4-46.3) fL RDW Coeff of Lyubov (11.5-14.5) % Plt Count (130-400) K/uL MPV (7.4-10.4) fL Immature Gran % (Auto) % Neut % (Auto) % Lymph % (Auto) % Bath % (Auto) % Eos % (Auto) % Baso % (Auto) % Neut # (Auto) (1.4-6.5) K/uL Lymph # (Auto) (1.2-3.4) K/uL Bath # (Auto) (0.11-0.59) K/uL Eos # (Auto) (0-0.5) K/uL Baso # (Auto) (0-0.2) K/uL Immature Gran # (Auto) (0.00-0.02) K/uL PT 11.0 Cancelled INR 1.1 Cancelled APTT 25.6 Cancelled PTT Ratio 1.0 Cancelled Sodium Potassium Chloride Carbon Dioxide Anion Gap BUN Creatinine Est Cr Clr Drug Dosing Est GFR ( Amer) Est GFR (Non-Af Amer) BUN/Creatinine Ratio Glucose Osmolality (280-300) mOsm/kg Calcium Total Bilirubin Direct Bilirubin AST ALT Alkaline Phosphatase Total Protein Albumin Globulin Albumin/Globulin Ratio Lipase Urine Color Jory Urine Appearance Clear (Clear) Urine pH (4.5-7.5) Ur Specific [place] 1.022 (1.000-1.030) Urine Protein (Negative) Urine Glucose (UA) (Negative) Urine Ketones (Negative) Urine Blood (Negative) Urine Nitrite (Negative) Urine Bilirubin (Negative) Urine Urobilinogen (Negative) Ur Leukocyte Esterase (Negative) Urine RBC 0-4 (0-4) /hpf Urine WBC 5-10 H (0-5) /hpf Ur Epithelial Cells 5-10 H (0-5) /lpf Urine Bacteria 1+ H (Negative) SARS-CoV-2, RNA, NAAT (NEGATIVE) 04/17/21 04/17/21 Range/Units 12:56 12:56 WBC 5.80 (4.8-10.8) K/uL RBC 3.75 L (4.7-6.1) M/uL Hgb 11.6 L (14.0-18.0) g/dL Hct 34.3 L (42-52) % MCV 91.5 (80-100) fL MCH 30.9 (25-34) pg MCHC 33.8 (32-36) g/dL RDW Std Deviation 56.2 H (36.4-46.3) fL RDW Coeff of Lyubov 16.9 H (11.5-14.5) % Plt Count 221 (130-400) K/uL MPV 11.7 H (7.4-10.4) fL Immature Gran % (Auto) 0.2 % Neut % (Auto) 74.8 % Lymph % (Auto) 20.2 % Bath % (Auto) 2.9 % Eos % (Auto) 1.4 % Baso % (Auto) 0.5 % Neut # (Auto) 4.34 (1.4-6.5) K/uL Lymph # (Auto) 1.17 L (1.2-3.4) K/uL Bath # (Auto) 0.17 (0.11-0.59) K/uL Eos # (Auto) 0.08 (0-0.5) K/uL Baso # (Auto) 0.03 (0-0.2) K/uL Immature Gran # (Auto) 0.01 (0.00-0.02) K/uL PT INR APTT PTT Ratio Sodium Cancelled Potassium Cancelled Chloride Cancelled Carbon Dioxide Cancelled Anion Gap Cancelled BUN Cancelled Creatinine Cancelled Est Cr Clr Drug Dosing Cancelled Est GFR ( Amer) Cancelled Est GFR (Non-Af Amer) Cancelled BUN/Creatinine Ratio Cancelled Glucose Cancelled Osmolality (280-300) mOsm/kg Calcium Cancelled Total Bilirubin Cancelled Direct Bilirubin Cancelled AST Cancelled ALT Cancelled Alkaline Phosphatase Cancelled Total Protein Cancelled Albumin Cancelled Globulin Albumin/Globulin Ratio Lipase Cancelled Urine Color Urine Appearance (Clear) Urine pH (4.5-7.5) Ur Specific [place] (1.000-1.030) Urine Protein (Negative) Urine Glucose (UA) (Negative) Urine Ketones (Negative) Urine Blood (Negative) Urine Nitrite (Negative) Urine Bilirubin (Negative) Urine Urobilinogen (Negative) Ur Leukocyte Esterase (Negative) Urine RBC (0-4) /hpf Urine WBC (0-5) /hpf Ur Epithelial Cells (0-5) /lpf Urine Bacteria (Negative) SARS-CoV-2, RNA, NAAT (NEGATIVE)
[2021-04-18] MEDS ORDERED: ATORVASTATIN 40 MG TAB PO SCH (09:00)
[2021-04-18 09:18] LABS: Albumin Level 2.8 gm/dl (3.4-5.0); BUN Creatinine Ratio 18.9 (10-20); Bilirubin,Total 19.6 mg/dl (0.2-1.0); Calcium 8.8 mg/dl (8.5-10.1); Creatinine Clr Calc Pharmacy 81.6 ml/min; Est GFR (African American) 112.2 ml/min; Est GFR (Non-African American) 96.8 ml/min; Globulin 2.9 gm/dl (2.5-4.0); Total Protein 5.7 gm/dl (6.0-8.3)
[2021-04-18 09:19] LABS: Potassium 3.7 mmol/L (3.5-5.1)
[2021-04-18] MEDS: NICOTINE 21 MG/24 HR TDSY TD SCH (11:29)
[2021-04-18] MEDS ORDERED: SODIUM CHLORIDE 0.9% 1000ML 1,000 ML IV SCH (16:45)
--- NOTE | 2021-04-18 16:46 | Hospitalist Progress Note ---
Date of Service April 18, 2021 Assessment & Plan (1) Pancreatic mass: Plan: 66 y/o WF presented with progressive fatigue, 20 lbs weight loss, and weakness * Radiographic evidence of pancreatic head mass (concerning for adenocarcinoma) resulting in obstruction of the common bile duct and pancreatic ducts. In addition, there does appear to be mildly enlarged portacaval and gastrohepatic adenopathy suspicious for metastatic disease. * GI consulted who plans on ERCP with stent insertion tomorrow * Briefly discussed with GI potential need for transfer to tertiary center for Whipple procedure. Given metastatic disease, they do not believe patient would be a candidate. (2) Abnormal LFTs: Plan: * presenting LFT abnl (TB: 21.2, AST: 330, ALT: 245, ALK PHOS: 1500)--> due to obstructing mass * See above * Stop statin and Tylenol * GI consulted and plan is for ERCP with biliary and pancreatic stent along with biopsy of mass * Follow labs (3) Hyponatremia: Plan: * Presenting sodium Na+ 126 --patient asymptomatic. No nausea, vomiting, weakness, lethargy, confusion. 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 * Patient was placed on a fluid restricted diet and with this, his sodium is down trended to 125 * Urine osmolality is 621 with predicted serum osmo of 150 (this would coincide with SIADH) * Continue fluid restricted diet (1.5 L) * Add boost supplement 3 times daily * Does not appear to have a salt wasting nephropathy (4) CAD (coronary artery disease): Plan: * CAD with poor EF (25-30%) * continue entresto, Brillinta and ASA (5) Dyslipidemia: Plan: * hold statin given hyperbilirubinemia (6) Hyperglycemia: Plan: * Elevated at 170 on a reportedly fasting BMP, without the diagnosis of diabetes-- this was nonfasting. 111 today * continue to monitor. (7) Tobacco abuse: Plan: * Nicotine patch ordered. * Counseled on smoking cessation. Plan: plan of care to be d/w Dr. Robledo Admission and Anticipated Discharge Date Admission Date: April 17, 2021 Subjective Patient seen on daily rounds today. Vocalizes no significant complaints or concerns. Denies fevers, chills, chest pain, shortness of breath, abdominal pain, nausea or vomiting. Presented to the ED yesterday with progressive fatigue, 20 pound weight loss and jaundice over 2 months. Bilirubin 21.2 with radiographic evidence of pancreatic head mass consistent with presumed adenocarcinoma resulting in obstruction of the common bile duct and pancreatic duct. Review of Systems Review of Systems: All systems reviewed and are unremarkable except as noted in HPI and below Denies fevers, chills, headache, nasal congestion, sore throat, cough, chest pain, shortness of breath, palpitations, orthopnea, PND, abdominal pain, nausea, vomiting, diarrhea, constipation, dysuria, hematuria, frequency, back pain, joint pain or swelling, easy bruising or bleeding, skin lesions or rashes. Physical Exam Physical Exam: General: Resting comfortably in his hospital bed. NAD. HEENT: Head is AT/NC scleral icterus. Buccal mucosa is moist and pink Neck: No JVD. Negative hepatojugular reflex Cardiac: RRR but distant Lungs: CTA without W/R/R Abdomen: Normoactive X4. Soft and nontender in all quadrants. Extremities: No peripheral clubbing cyanosis or edema Neuro: A&O X4. Cranial nerves II through XII are grossly intact. No focal neuro deficits Skin: significant jaundice noted Psych: Appropriate affect. Pleasant and cooperative Results & Data Results & Data ([facility]) Vital Signs (Past 12 Hours) Vital Signs Temp Pulse Resp BP Pulse Ox 04/18/21 14:58 36.5 C 69 16 112/66 99 Laboratory Results 04/18/21 07:56 04/18/21 07:56 TB: 21.2--> 19.6 AST: --> 330 ALT: 271 --> 245 Alk Phos: 1500 --> 1466 PG Care Time/CCT Total # of Minutes Spent Total Time Spent with Patient: Total time spent is greater than 50% in coordination of care (as documented) at patient's floor/unit and/or counseling patient: Coding Level of Care Code 54036 Subseq Hosp Care Lvl 2 Diagnoses Pancreatic mass K86.89 Hyponatremia E87.1 CAD (coronary artery disease) I25.10 Dyslipidemia E78.5 Hyperglycemia R73.9 Tobacco abuse Z72.0 Abnormal LFTs R79.89
[2021-04-18] MEDS: ENOXAPARIN INJ 40 MG/0.4 ML SYR SQ SCH (20:23)
[2021-04-18] MEDS ORDERED: CALCIUM CARBONATE 500 MG CHEWABLE TAB PO PRN (21:35)
[2021-04-19 06:51] LABS: Basophils # (auto) 0.03 K/uL (0-0.2); Basophils % (auto) 0.7 %; Eosinophils # (auto) 0.15 K/uL (0-0.5); Eosinophils % (auto) 3.4 %; Hematocrit (blood only) 30.3 % (42-52); Hemoglobin 10.2 g/dL (14.0-18.0); Immature Granulocytes # (auto) 0.01 K/uL (0.00-0.02); Immature Granulocytes % (auto) 0.2 %; Lymphocytes # (auto) 0.93 K/uL (1.2-3.4); Lymphocytes % (auto) 20.9 %; Mean Corpuscular Hemoglobin 30.5 pg (25-34); Mean Corpuscular Hgb Conc 33.7 g/dL (32-36); Mean Corpuscular Volume 90.7 fL (80-100); Mean Platelet Volume 11.3 fL (7.4-10.4); Monocytes # (auto) 0.34 K/uL (0.11-0.59); Monocytes % (auto) 7.7 %; Neutrophils # (auto) 2.98 K/uL (1.4-6.5); Neutrophils % (auto) 67.1 %; Platelet Count 165 K/uL (130-400); RDW Coefficient of Variation 16.5 % (11.5-14.5); RDW Standard Deviation 54.9 fL (36.4-46.3); Red Blood Count 3.34 M/uL (4.7-6.1); White Blood Count 4.44 K/uL (4.8-10.8)
[2021-04-19 07:04] LABS: INR 1.1 (0.9-1.1); Prothrombin Time 10.9 Seconds (9.0-12.0)
[2021-04-19 07:27] LABS: Alanine Aminotransferase 221 U/L (7-52); Albumin Level 2.7 gm/dl (3.4-5.0); Alkaline Phosphatase 1376 U/L (34-104); Anion Gap 7 (3-11); BUN Creatinine Ratio 20.9 (10-20); Bilirubin,Total 19.9 mg/dl (0.2-1.0); Blood Urea Nitrogen 14 mg/dl (6-23); Calcium 8.7 mg/dl (8.5-10.1); Carbon Dioxide 21 mmol/L (21-32); Chloride 96 mmol/L (98-107); Creatinine Clr Calc Pharmacy 90.2 ml/min; Est GFR (African American) 116.9 ml/min; Est GFR (Non-African American) 100.8 ml/min; Globulin 2.8 gm/dl (2.5-4.0); Glucose 119 mg/dl (70-99(Fasting)); Sodium 124 mmol/L (136-145); Total Protein 5.5 gm/dl (6.0-8.3)
[2021-04-19 08:08] LABS: Potassium 3.6 mmol/L (3.5-5.1)
[2021-04-19] MEDS: ASPIRIN 81 MG ECTAB PO SCH (08:15)
[2021-04-19] MEDS: VALSARTAN/SACUBITRIL 26/24MG TAB PO SCH ×2 (08:16→20:52)
[2021-04-19] MEDS: TICAGRELOR 90 MG TAB PO SCH ×2 (08:16→20:52)
[2021-04-19] MEDS: NICOTINE 21 MG/24 HR TDSY TD SCH (08:17)
--- NOTE | 2021-04-19 09:24 | Gastroenterology Progress Note ---
Date of Service April 19, 2021 Assessment & Plan (1) Pancreatic mass: Plan: 66 year old male admitted with obstructive jaundice with 2cm pancreatic mass on imaging Can have clear liquids today NPO after midnight Plan for EUS +/- ERCP Friday in the OR, discussed with patient. Thank you for allowing us to participate in the care of this patient. Please call with any acute changes, questions or concerns. Please see addendum below with additional recommendation from my supervising physician. Admission and Anticipated Discharge Date Admission Date: April 17, 2021 Supervising Physician Co-Signing Physician Notes I have personally seen and examined the patient with MIKE Tai. Her note reflects my exam and findings. I agree with her impression and plan. Plan for colonoscopy tomorrow after prep. On for EUS/ERCP tomorrow. Cj Varela M.D. Subjective Pt was seen and evaluated, chart reviewed. No concerns. No abd pain. No nausea, vomiting. No fever, chills, CP, SOB. Review of Systems Review of Systems: All systems reviewed & are unremarkable except as noted in HPI & below Physical Exam Eyes: + icterus Respiratory: normal respiratory effort, lungs clear to auscultation Cardiovascular: Rate/Rhythm: regular rate and regular rhythm Gastrointestinal (Abdomen): normal bowel sounds, soft, nontender, no hepatosplenomegaly Skin: no rashes, warm and dry Results & Data ([facility]) Vital Signs (Past 12 Hours) Vital Signs Temp Pulse Resp BP Pulse Ox Pulse Ox 04/19/21 07:49 36.8 C 83 16 97/57 L 98 04/19/21 00:04 36.5 C 80 19 105/67 98 98
[2021-04-19] MEDS ORDERED: SODIUM CHLORIDE 1 GM TABLET PO STA (10:27)
--- NOTE | 2021-04-19 14:54 | Consultation Report ---
ONCOLOGY CONSULTATION. DATE OF CONSULTATION: 04/19/2021. REASON FOR CONSULTATION: Presumed pancreatic carcinoma. HISTORY OF PRESENT ILLNESS: The patient is a very pleasant 66-year-old gentleman who presented to the Emergency Department at [facility] after pancreatic mass was found on outpatient CT. The patient states that he noticed change in stool. The patient states that his friends noticed jaundice a couple of weeks ago. He had also noticed that his stools were pale in color and his urine seemed darker in color as well. Associated with this, he also noted worsening pruritus. He states that he had a massive heart attack around August last year and since then he has lost about [address] abdomen and pelvis performed obtained by his PCP to evaluate symptoms revealed presumed pancreatic head tumor with associated biliary and pancreatic ductal dilatation. On admission, patient had CT chest, abdomen and pelvis obtained on 04/17/2021, which revealed ill-defined hypodense pancreatic head mass measuring about 2 cm, suggestive of adenocarcinoma with obstruction of the pancreatic and common bile duct. There was no evidence of vascular encasement or occlusion. CT abdomen also revealed mildly enlarged portacaval and gastrohepatic adenopathy suspicious for metastatic disease and a few pulmonary nodules were seen in CT chest measuring up to 4 mm. Labs obtained on admission revealed significant hyperbilirubinemia with total bilirubin of about 21.2 along with elevated AST, ALT, alkaline phosphatase. He is scheduled for EUS/ERCP tomorrow. PAST MEDICAL HISTORY: 1. Coronary artery disease status post stent placement. 2. Heart failure with EF of about 20%. 3. Hyperlipidemia. 4. Ischemic cardiomyopathy. PAST SURGICAL HISTORY: 1. History of appendectomy. 2. Status post coronary artery stent placement. FAMILY HISTORY: Father had colorectal cancer at the age of 50. SOCIAL HISTORY: He endorses a 2-pack per day history of smoking. Also, endorses alcohol use and denies illicit drug use. REVIEW OF SYSTEMS: CONSTITUTIONAL: He endorses 20 pounds weight loss over the past 8 months. Denies fever, chills, or night sweats. EYES: Denies any change in vision. ENT: Denies epistaxis or nasal discharge. CARDIOVASCULAR: Denies chest pain, palpitations, dizziness, or diaphoresis. RESPIRATORY: Denies new shortness of breath, cough or chest pain. GASTROINTESTINAL: Endorses change in stool color and caliber. Denies abdominal pain, nausea or vomiting. GENITOURINARY: Denies urinary frequency, urgency or dysuria. Endorses change in urine color. NEUROLOGICAL: He denies headaches, dizziness, or blurry vision. ALLERGIC/IMMUNOLOGIC: Endorses pruritus. PHYSICAL EXAMINATION: VITAL SIGNS: Blood pressure 197/57, heart rate 83, respiratory rate 16, temperature 36.8, oxygen saturation 98% on room air. EYES: Eyes were with significant icterus. No conjunctival erythema noted. NECK: Negative for palpable masses. RESPIRATORY: Lung sounds were generally clear bilaterally. CARDIOVASCULAR: Heart was regular rate and rhythm without significant murmur, gallops, or rubs. GASTROINTESTINAL: No palpable hepatosplenomegaly. ABDOMEN: Soft with normal bowel sounds. LYMPHATIC SYSTEM: No palpable peripheral lymphadenopathy. MUSCULOSKELETAL SYSTEM: Negative. SKIN: Was positive for generalized jaundice. EXTREMITIES: Negative for edema or erythema. LABORATORY DATA: CBC from 04/19/2021 significant for white cell count of 4.4, hemoglobin of 10.2, hematocrit of 30.3 with platelet count of 165,000. Chemistry significant for sodium of 124, chloride of 96, bilirubin of 19.2, total bilirubin of 19.9, AST 295, ALT 221, alkaline phosphatase 1376. IMAGING STUDIES: CT chest on 04/17/2021. Impression: 1. A few pulmonary nodules are seen measuring up to 4 mm. 2. No lymphadenopathy is seen. 3. Emphysema and pulmonary hypertension. CT abdomen and pelvis on 04/17/2021. Impression: 1. Ill-defined hypodense pancreatic head mass measuring up to 2 cm, suggestive of adenocarcinoma. This resulted in obstruction of the pancreatic and common bile duct. No evidence of vascular encasement or occlusion. 2. Mildly enlarged portacaval and gastrohepatic adenopathy, suspicious for metastatic disease. IMPRESSION: 1. Presumed adenocarcinoma of the head of pancreas. 2. Obstructive jaundice. 3. History of coronary artery disease with ischemic cardiomyopathy and EF of 20%. 4. Anemia. 5. Significant smoking history. Pleasant gentleman who recently found to have head of pancreas mass. Imaging revealed possible lymph node involvement with mildly enlarged portacaval and gastrohepatic adenopathy. Although, it is mentioned that lymph nodes are mildly enlarged, it is interesting that there was no evidence of vascular encasement or occlusion noted on imaging. Most head of pancreas lesions tend to present early and so, it is possible that mildly enlarged portacaval and gastrohepatic adenopathy might be reactive. He does have multiple pulmonary nodules, which may represent metastatic disease, but are too tiny to evaluate with biopsy at this time. Would recommend checking CA 19-9. Agree with EUS/ERCP as scheduled for tomorrow. On discharge, I will schedule him for evaluation by Surgical Oncology at [facility] to see the patient may be a candidate for resection after neoadjuvant chemotherapy with FOLFIRINOX. Regarding the patient's anemia, would recommend anemia workup with iron, vitamin B12 and folate levels given the patient's history of alcohol use. Patient will be scheduled to follow up with me in Hematology Clinic to potentially start neoadjuvant systemic treatment. He will require MediPort placement after EUS/ERCP confirms pancreatic adenocarcinoma for administration of chemotherapy. Thank you for this consult. Oncology will continue following the patient while in the hospital and I will schedule him for followup with me upon discharge. Please feel free to call if you have any further questions. Job ID: [id number] [id number]
--- NOTE | 2021-04-19 15:25 | Anesthesiology Consultation ---
Date of Service April 19, 2021 Assessment & Plan Chart Review Chart Review: Acceptable Risk for Surgery and Patient NOT seen in Pre Admission Testing Consults Requested none ASA ASA4 Proposed Anesthesia Anesthesia Type: General History Surgery Operation Date: 04/19/21 10:30 Proposed Procedures p Upper Endoscopic Ultrasonography - Alex Marquis, DO s Endoscopic Retrograde Cholangiopancreatogram - Alex Marquis DO Operation Date: 04/20/21 12:50 Proposed Procedures p Endoscopic Ultrasonography Upper - Alex Marquis, s Endoscopic Retrograde Cholangiopancreatogram - Alex Marquis DO Height/Weight Height: 5 ft 9 in Weight: 58 kg Allergies Allergy/AdvReac Type Severity Reaction Status Date / Time No Known Drug Allergies Allergy Verified 04/17/21 15:08 Medications Home Medications Medication Instructions Recorded Confirmed Last Taken aspirin 81 mg tablet,delayed 81 mg PO DAILY #90 tab 11/10/20 04/17/21 04/17/21 release (Ecotrin Low Strength) atorvastatin 80 mg tablet 80 mg PO DAILY #90 tab 11/10/20 04/17/21 Unknown nitroglycerin 0.4 mg sublingual 0.4 mg SL Q5M PRN #20 tab 11/10/20 04/17/21 Unknown tablet (Nitrostat) sacubitril 24 mg-valsartan 26 mg 1 tab PO BID #180 tab 11/10/20 04/17/2104/03 tablet (Entresto) ticagrelor 90 mg tablet (Brilinta) 90 mg PO BID #180 tab 11/10/20 04/17/21 04/17/21 Active Medications Generic Name Dose Route Start Last Admin Trade Name Freq PRN Reason Stop Dose Admin Aspirin 81 mg 04/18/21 09:00 04/19/21 08:15 Aspirin 81 Mg Ectab PO 05/18/21 08:59 81 mg DAILY FAIZAN Administration Calcium Carbonate 500 mg 04/18/21 21:35 04/18/21 22:50 Calcium Carbonate 500 Mg Chewable Tab PO 05/18/21 21:34 500 mg Q2H PRN Administration Indigestion Enoxaparin Sodium 40 mg 04/17/21 19:15 04/18/21 20:23 Enoxaparin Inj 40 Mg/0.4 Ml Syr SQ 05/17/21 19:14 40 mg Q24H FAIZAN Administration Miscellaneous 1 ea 04/18/21 08:59 04/19/21 08:18 Remove Nicoderm Patch N/A 05/18/21 08:58 1 ea [id number] FAIZAN Administration Nicotine 21 mg 04/17/21 16:15 04/19/21 08:17 Nicotine 21 Mg/24 Hr Tdsy TD 05/17/21 16:14 21 mg QAM FAIZAN Administration Sacubitril/Valsartan 1 tab 04/17/21 21:00 04/19/21 08:16 Valsartan/Sacubitril 26/24mg Tab PO 05/17/21 20:59 1 tab BID FAIZAN Administration Ticagrelor 90 mg 04/17/21 21:00 04/19/21 08:16 Ticagrelor 90 Mg Tab PO 05/17/21 20:59 90 mg BID FAIZAN Administration Past Medical History Medical History Acute ST elevation myocardial infarction (STEMI) involving left anterior descend ing coronary artery AIVR (accelerated idioventricular rhythm) CAD (coronary artery disease) Carpal tunnel syndrome Displacement of cervical intervertebral disc without myelopathy Dyslipidemia Hearing loss, bilateral Ischemic cardiomyopathy Ventricular tachycardia Exercise / Class Metabolic Activity III < 4 Walking/Shop/Light housework Past Family History Family History Mother Myocardial infarction Diabetes Father Colorectal cancer Diabetes Past Surgical History Surgical History H/O cardiac catheterization History of appendectomy Hx of colonoscopy S/P coronary artery stent placement Past Anesthesia History No Hx of Anesthesia Complications and No Family Hx of Anesthesia Complications History of PONV No Hx of PONV and No Hx of Motion Sickness Social History Smoking Status: Current every day smoker tobacco type: cigarettes Smoking cigarettes per day: 40 Do You Dip or Chew Tobacco: No Hx Alcohol Use: Yes alcohol intake frequency: a few times a week Hx Substance Use: No Physical Exam Vital Signs Last Vital Signs Temp 36.8 C 04/19/21 07:49 Pulse 83 04/19/21 07:49 Resp 16 04/19/21 07:49 BP 97/57 L 04/19/21 07:49 Pulse Ox 98 04/19/21 07:49 Testing Laboratory Results 04/19/21 06:12 PT 10.9 Seconds (9.0-12.0) 04/19/21 06:12 INR 1.1 (0.9-1.1) 04/19/21 06:12 APTT 25.6 Seconds (21.0-31.0) 04/17/21 13:43 Urine Color Jory 04/17/21 12:56 Urine Appearance Clear (Clear) 04/17/21 12:56 Urine pH (4.5-7.5) 04/17/21 12:56 Ur Specific [place] 1.022 (1.000-1.030) 04/17/21 12:56 Urine Protein (Negative) 04/17/21 12:56 Urine Glucose (UA) (Negative) 04/17/21 12:56 Urine Ketones (Negative) 04/17/21 12:56 Urine Nitrite (Negative) 04/17/21 12:56 Ur Leukocyte Esterase (Negative) 04/17/21 12:56 Urine RBC 0-4 /hpf (0-4) 04/17/21 12:56 Urine WBC 5-10 /hpf (0-5) H 04/17/21 12:56 Ur Epithelial Cells 5-10 /lpf (0-5) H 04/17/21 12:56 04/17/21 12:56 Urine Culture - Final Urine,Clean Catch No growth - less than 1,000 colonies/mL. Echocardiogram Date: 11/27/20 EF: 25% LV Function: dysfunctional (severely reduced) RWMA: + akinetic (AK apex and anteroseptum) and + hypokinetic (pretty much global HK) Other Findings: + atrial enlargement (moderate LA dilation)
[2021-04-19 15:53] LABS: Potassium 3.4 mmol/L (3.5-5.1)
[2021-04-19 15:54] LABS: BUN Creatinine Ratio 18.2 (10-20); Calcium 8.5 mg/dl (8.5-10.1); Creatinine Clr Calc Pharmacy 91.5 ml/min; Est GFR (African American) 117.6 ml/min; Est GFR (Non-African American) 101.5 ml/min
[2021-04-19] MEDS ORDERED: POTASSIUM CHLORIDE CRTAB 20 MEQ TABCR PO STA (16:52)
--- NOTE | 2021-04-19 16:55 | Hospitalist Progress Note ---
Date of Service April 19, 2021 Assessment & Plan (1) Pancreatic mass: Plan: 66 y/o WF presented with progressive fatigue, 20 lbs weight loss, and weakness * Radiographic evidence of pancreatic head mass (concerning for adenocarcinoma) resulting in obstruction of the common bile duct and pancreatic ducts. In addition, there does appear to be mildly enlarged portacaval and gastrohepatic adenopathy suspicious for metastatic disease. * GI consulted who plans on ERCP with stent insertion tomorrow * Discussed with oncology who is happy to see patient while in houseappreciate recommendations. CT report reviewed and only suspicious for metastatic disease which does not completely rule out a possible Whipple procedure. Oncology did recommend palliative chemotherapy to help shrink the mass and then potentially proceed with a Whipple procedure. Mediport insertion recommended to initiate chemotherapy. Oncology is recommending referral to [facility] to discuss candidacy for Whipple--greatly appreciate recommendations and assistance * I have reached out to Dr. Shah for potential Mediport insertion tomorrow during ERCP and he is happy to help with this-- appreciate assistance (2) Abnormal LFTs: Plan: * presenting LFT abnl (TB: 21.2, AST: 330, ALT: 245, ALK PHOS: 1500)--> due to obstructing mass * See above * Stopped statin and Tylenol * GI consulted and plan is for ERCP with biliary and pancreatic stent along with biopsy of mass * Follow labs (3) Hyponatremia: Plan: * Presenting sodium Na+ 126 --patient asymptomatic. No nausea, vomiting, weakness, lethargy, confusion. 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 Initiate salt tablets with follow-up labs to trend (4) Anemia: Plan: * Hemoglobin 10-11. Was 13.3 in December * Obtain work-up including iron studies, reticulocyte count, folate and B12 * Could have dilutional component in the setting of SIADH * Monitor closely (5) CAD (coronary artery disease): Plan: * CAD with poor EF (25-30%) * continue entresto, Brillinta and ASA (6) Dyslipidemia: Plan: * hold statin given hyperbilirubinemia (7) Tobacco abuse: Plan: * Nicotine patch ordered. * Counseled on smoking cessation. (8) Severe protein-calorie malnutrition: Plan: * Noted Plan: plan of care to be d/w Dr. Robledo Admission and Anticipated Discharge Date Admission Date: April 17, 2021 Subjective Patient seen on daily rounds today. Vocalizes no complaints or concerns. Denies fevers, chills, chest pain, shortness of breath, abdominal pain, nausea or vomiting. Was to go to the OR today for ERCP and stent placement but this is since been postponed until tomorrow Review of Systems Review of Systems: All systems reviewed and are unremarkable except as noted in HPI and below Denies fevers, chills, headache, nasal congestion, sore throat, cough, chest pain, shortness of breath, palpitations, orthopnea, PND, abdominal pain, nausea, vomiting, diarrhea, constipation, dysuria, hematuria, frequency, back pain, joint pain or swelling, easy bruising or bleeding, skin lesions or rashes. Physical Exam Physical Exam: General: Resting comfortably in his hospital bed. NAD. HEENT: Head is AT/NC scleral icterus. Buccal mucosa is moist and pink Neck: No JVD. Negative hepatojugular reflex Cardiac: RRR but distant Lungs: CTA without W/R/R Abdomen: Normoactive X4. Soft and nontender in all quadrants. Extremities: No peripheral clubbing cyanosis or edema Neuro: A&O X4. Cranial nerves II through XII are grossly intact. No focal neuro deficits Skin: significant jaundice noted Psych: Appropriate affect. Pleasant and cooperative Results & Data Results & Data ([facility]) Vital Signs (Past 12 Hours) Vital Signs Temp Pulse Resp BP Pulse Ox 04/19/21 15:27 36.6 C 76 16 115/74 97 04/19/21 07:49 36.8 C 83 16 97/57 L 98 Laboratory Results 04/19/21 06:12 04/19/21 15:15 PG Care Time/CCT Total # of Minutes Spent Total Time Spent with Patient: Total time spent is greater than 50% in coordination of care (as documented) at patient's floor/unit and/or counseling patient: Coding Level of Care Code 61269 Subseq Hosp Care Lvl 3 Diagnoses Pancreatic mass K86.89 Abnormal LFTs R79.89 Hyponatremia E87.1 CAD (coronary artery disease) I25.10 Dyslipidemia E78.5 Tobacco abuse Z72.0 Anemia D64.9 Severe protein-calorie malnutrition E43
[2021-04-19 17:43] LABS: Reticulocyte % 1.6 % (0.5-2.0); Reticulocytes # 0.05 10^6/uL (0.02-0.10)
[2021-04-19 18:03] LABS: Ferritin 892.5 ng/ml (8-388)
[2021-04-19 18:49] LABS: Folate (Folic Acid) 10.02 ng/ml (>5.38)
[2021-04-19] MEDS: ENOXAPARIN INJ 40 MG/0.4 ML SYR SQ SCH (20:52)
[2021-04-20] MEDS ORDERED: CIPROFLOXACIN / D5W 400 MG/200 ML BAG IV SCH (06:00)
[2021-04-20 08:39] LABS: Basophils # (auto) 0.02 K/uL (0-0.2); Basophils % (auto) 0.4 %; Eosinophils # (auto) 0.11 K/uL (0-0.5); Eosinophils % (auto) 2.3 %; Hematocrit (blood only) 31.2 % (42-52); Hemoglobin 10.4 g/dL (14.0-18.0); Immature Granulocytes # (auto) 0.01 K/uL (0.00-0.02); Immature Granulocytes % (auto) 0.2 %; Lymphocytes # (auto) 0.79 K/uL (1.2-3.4); Lymphocytes % (auto) 16.2 %; Mean Corpuscular Hemoglobin 30.8 pg (25-34); Mean Corpuscular Hgb Conc 33.3 g/dL (32-36); Mean Corpuscular Volume 92.3 fL (80-100); Mean Platelet Volume 10.9 fL (7.4-10.4); Monocytes # (auto) 0.32 K/uL (0.11-0.59); Monocytes % (auto) 6.6 %; Neutrophils # (auto) 3.62 K/uL (1.4-6.5); Neutrophils % (auto) 74.3 %; Platelet Count 195 K/uL (130-400); RDW Coefficient of Variation 16.8 % (11.5-14.5); RDW Standard Deviation 56.2 fL (36.4-46.3); Red Blood Count 3.38 M/uL (4.7-6.1); White Blood Count 4.87 K/uL (4.8-10.8)
--- NOTE | 2021-04-20 08:43 | Surgery Consultation ---
Date of Consultation April 20, 2021 Assessment & Plan (1) Pancreatic mass: Will plan for A-port placement this afternoon in coordination with EUS/ERCP. Lovenox held. History of Present Illness Attending Physician: Almas Lanier MD History of Present Illness 66 y/o male smoker with fatigue, 25 pound weight loss, jaundice and light stools admitted 3 days ago for further evaluation of pancreatic mass. EUS/ERCP planned for this afternoon. We were asked to evaluate for port placement. Allergies Allergy/AdvReac Type Severity Reaction Status Date / Time No Known Drug Allergies Allergy Verified 04/17/21 15:08 Home Medications Medication Instructions Recorded Confirmed Type aspirin 81 mg tablet,delayed 81 mg PO DAILY #90 tab 11/10/20 04/17/21 Rx release (Ecotrin Low Strength) atorvastatin 80 mg tablet 80 mg PO DAILY #90 tab 11/10/20 04/17/21 Rx nitroglycerin 0.4 mg sublingual 0.4 mg SL Q5M PRN #20 tab 11/10/20 04/17/21 Rx tablet (Nitrostat) sacubitril 24 mg-valsartan 26 mg 1 tab PO BID #180 tab 11/10/20 04/17/21 Rx tablet (Entresto) ticagrelor 90 mg tablet (Brilinta) 90 mg PO BID #180 tab 11/10/20 04/17/21 Rx Patient History Medical History Acute ST elevation myocardial infarction (STEMI) involving left anterior descending coronary artery AIVR (accelerated idioventricular rhythm) CAD (coronary artery disease) Carpal tunnel syndrome Displacement of cervical intervertebral disc without myelopathy Dyslipidemia Hearing loss, bilateral Ischemic cardiomyopathy Ventricular tachycardia Surgical History H/O cardiac catheterization History of appendectomy Hx of colonoscopy S/P coronary artery stent placement Family History Mother Myocardial infarction Diabetes Father Colorectal cancer Diabetes Social History Smoking Status: Current every day smoker Tobacco Type: Cigarettes Cigarettes Per Day: 40; Second Hand Exposure: Yes; Do You Dip or Chew Tobacco: No; Hx Alcohol Use: Yes Hx Substance Use: No Preferred Language: Welsh Communication Ability: Effective Customer Engineer Required: No Beliefs That Will Affect Care: None marital status: Single Current Living Situation: Alone current occupational status: employed 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 Feels Safe at Home: Yes Safety Concerns: Feels Safe At This Time Childhood Exposure to Second-Hand Smoke: Yes Dental Care, Regularly: Yes Sunscreen Use: No Assistive Devices: None Review of Systems Constitutional: + fatigue and + weight loss; no anorexia Cardiovascular: no chest pain Gastrointestinal: + change in stools (zaid color); no abdominal pain, no bloating, no nausea and no vomiting Physical Exam Constitutional: + thin Respiratory: normal respiratory effort, lungs clear to auscultation Cardiovascular: RRR, no murmur, no edema Gastrointestinal (Abdomen): normal bowel sounds, soft, nontender, no hepatosplenomegaly Skin: + jaundice Results & Data ([facility]) Vital Signs (Past 12 Hours) Vital Signs Temp Pulse Resp BP Pulse Ox Pulse Ox 04/20/21 07:23 36.7 C 71 16 101/60 98 04/20/21 00:57 104/72 04/19/21 22:30 36.8 C 71 16 95/47 L 98 04/19/21 20:50 98 PG Care Time/CCT Total # of Minutes Spent Total Time Spent with Patient: Total time spent is greater than 50% in coordination of care (as documented) at patient's floor/unit and/or counseling patient: Coding Level of Care Code 67599 Inpt Consult Level 3 Diagnoses Pancreatic mass K86.89
[2021-04-20 09:00] LABS: INR 1.1 (0.9-1.1); Prothrombin Time 11.1 Seconds (9.0-12.0)
[2021-04-20 09:14] LABS: Potassium 4.2 mmol/L (3.5-5.1)
[2021-04-20 09:15] LABS: Albumin Globulin Ratio 0.9 (0.9-2); Albumin Level 2.7 gm/dl (3.4-5.0); BUN Creatinine Ratio 14.5 (10-20); Bilirubin,Total 22.1 mg/dl (0.2-1.0); Calcium 8.7 mg/dl (8.5-10.1); Creatinine Clr Calc Pharmacy 87.6 ml/min; Est GFR (African American) 115.5 ml/min; Est GFR (Non-African American) 99.6 ml/min; Magnesium 1.7 mg/dl (1.7-2.4); Total Protein 5.7 gm/dl (6.0-8.3)
--- NOTE | 2021-04-20 09:38 | Gastroenterology Progress Note ---
Date of Service April 20, 2021 Assessment & Plan (1) Pancreatic mass: Plan: 66 year old male admitted with obstructive jaundice with 2cm pancreatic mass on imaging Remain NPO Plan for EUS +/- ERCP today Thank you for allowing us to participate in the care of this patient. Please call with any acute changes, questions or concerns. Please see addendum below with additional recommendation from my supervising physician. Admission and Anticipated Discharge Date Admission Date: April 17, 2021 Supervising Physician Co-Signing Physician Notes I saw and evaluated the patient. He presented with signs and symptoms consistent with obstructive jaundice likely related to a pancreatic mass. The patient has been in the hospital for several days with IV hydration in an attempt to maximize his medical condition for the procedure. At this point the patient is in need of a decompressive procedure, thus this would be considered urgent today. Physical examination deeply jaundiced patient, temporal wasting noted, no abdominal tenderness noted Impression: Patient with obstructive jaundice likely from an underlying pancreatic head mass. I have discussed the risks and benefits of endoscopic ultrasound, upper endoscopy and ERCP with the patient. These include bleeding, infection, perforation, cardiac complications, failed biliary cannulation and need for follow-up studies. Recommendations Upper endoscopy, endoscopic ultrasound and ERCP today Prophylactic antibiotics to be started today for 3 days Subjective Pt was seen and evaluated, chart reviewed. Is NPO for ERCP No abd pain, nausea, vomiting. Review of Systems Review of Systems: All systems reviewed & are unremarkable except as noted in HPI & below Physical Exam Eyes: + icterus Respiratory: normal respiratory effort, lungs clear to auscultation Cardiovascular: Rate/Rhythm: regular rate and regular rhythm Gastrointestinal (Abdomen): normal bowel sounds, soft, nontender, no hepatosplenomegaly Skin: no rashes, warm and dry + jaundice Results & Data ([facility]) Vital Signs (Past 12 Hours) Vital Signs Temp Pulse Resp BP Pulse Ox 04/20/21 07:23 36.7 C 71 16 101/60 98 04/20/21 00:57 104/72 04/19/21 22:30 36.8 C 71 16 95/47 L 98 Laboratory Results 04/20/21 04/20/21 04/20/21 Range/Units 08:10 08:10 08:10 WBC 4.87 (4.8-10.8) K/uL RBC 3.38 L (4.7-6.1) M/uL Hgb 10.4 L (14.0-18.0) g/dL Hct 31.2 L (42-52) % MCV 92.3 (80-100) fL MCH 30.8 (25-34) pg MCHC 33.3 (32-36) g/dL RDW Std Deviation 56.2 H (36.4-46.3) fL RDW Coeff of Lyubov 16.8 H (11.5-14.5) % Plt Count 195 (130-400) K/uL MPV 10.9 H (7.4-10.4) fL Immature Gran % (Auto) 0.2 % Neut % (Auto) 74.3 % Lymph % (Auto) 16.2 % [place] % (Auto) 6.6 % Eos % (Auto) 2.3 % Baso % (Auto) 0.4 % Reticulocyte % (Auto) (0.5-2.0) % Neut # (Auto) 3.62 (1.4-6.5) K/uL Lymph # (Auto) 0.79 L (1.2-3.4) K/uL [place] # (Auto) 0.32 (0.11-0.59) K/uL Eos # (Auto) 0.11 (0-0.5) K/uL Baso # (Auto) 0.02 (0-0.2) K/uL Reticulocyte # (0.02-0.10) 10^6/uL Immature Gran # (Auto) 0.01 (0.00-0.02) K/uL PT 11.1 (9.0-12.0) Seconds INR 1.1 (0.9-1.1) Sodium 125 L (136-145) mmol/L Potassium 4.2 D (3.5-5.1) mmol/L Chloride 96 L (98-107) mmol/L Carbon Dioxide 24 (21-32) mmol/L Anion Gap 5 (3-11) BUN 10 (6-23) mg/dl Creatinine 0.69 (0.6-1.4) mg/dl Est Cr Clr Drug Dosing 87.6 ml/min Est GFR ( Amer) 115.5 ml/min Est GFR (Non-Af Amer) 99.6 ml/min BUN/Creatinine Ratio 14.5 (10-20) Glucose 115 H (70-99(Fasting)) mg/dl Calcium 8.7 (8.5-10.1) mg/dl Magnesium 1.7 (1.7-2.4) mg/dl Iron (35-175) mcg/dl Unsaturated IBC (155-355) mcg/dl Transferrin (200-360) mg/dl Ferritin (8-388) ng/ml Total Bilirubin 22.1 H (0.2-1.0) mg/dl AST 296 H (13-39) U/L ALT 238 H (7-52) U/L Alkaline Phosphatase 1421 H (34-104) U/L Total Protein 5.7 L (6.0-8.3) gm/dl Albumin 2.7 L (3.4-5.0) gm/dl Globulin 3.0 (2.5-4.0) gm/dl Albumin/Globulin Ratio 0.9 (0.9-2) Amylase Lipase Cancelled CA 19-9 Antigen Vitamin B12 (211-911) pg/ml Folate (>5.38) ng/ml 04/19/21 04/19/21 04/19/21 Range/Units 17:48 17:48 15:15 WBC (4.8-10.8) K/uL RBC (4.7-6.1) M/uL Hgb (14.0-18.0) g/dL Hct (42-52) % MCV (80-100) fL MCH (25-34) pg MCHC (32-36) g/dL RDW Std Deviation (36.4-46.3) fL RDW Coeff of Lyubov (11.5-14.5) % Plt Count (130-400) K/uL MPV (7.4-10.4) fL Immature Gran % (Auto) % Neut % (Auto) % Lymph % (Auto) % [place] % (Auto) % Eos % (Auto) % Baso % (Auto) % Reticulocyte % (Auto) (0.5-2.0) % Neut # (Auto) (1.4-6.5) K/uL Lymph # (Auto) (1.2-3.4) K/uL [place] # (Auto) (0.11-0.59) K/uL Eos # (Auto) (0-0.5) K/uL Baso # (Auto) (0-0.2) K/uL Reticulocyte # (0.02-0.10) 10^6/uL Immature Gran # (Auto) (0.00-0.02) K/uL PT (9.0-12.0) Seconds INR (0.9-1.1) Sodium (136-145) mmol/L Potassium (3.5-5.1) mmol/L Chloride (98-107) mmol/L Carbon Dioxide (21-32) mmol/L Anion Gap (3-11) BUN (6-23) mg/dl Creatinine (0.6-1.4) mg/dl Est Cr Clr Drug Dosing ml/min Est GFR ( Amer) ml/min Est GFR (Non-Af Amer) ml/min BUN/Creatinine Ratio (10-20) Glucose (70-99(Fasting)) mg/dl Calcium (8.5-10.1) mg/dl Magnesium (1.7-2.4) mg/dl Iron 114 (35-175) mcg/dl Unsaturated IBC 142 L (155-355) mcg/dl Transferrin 187 L (200-360) mg/dl Ferritin 892.5 H (8-388) ng/ml Total Bilirubin (0.2-1.0) mg/dl AST (13-39) U/L ALT (7-52) U/L Alkaline Phosphatase (34-104) U/L Total Protein (6.0-8.3) gm/dl Albumin (3.4-5.0) gm/dl Globulin (2.5-4.0) gm/dl Albumin/Globulin Ratio (0.9-2) Amylase Lipase CA 19-9 Antigen Pending Vitamin B12 1081 H (211-911) pg/ml Folate 10.02 (>5.38) ng/ml 04/19/21 04/19/21 04/19/21 Range/Units 15:15 15:15 06:12 WBC (4.8-10.8) K/uL RBC (4.7-6.1) M/uL Hgb (14.0-18.0) g/dL Hct (42-52) % MCV (80-100) fL MCH (25-34) pg MCHC (32-36) g/dL RDW Std Deviation (36.4-46.3) fL RDW Coeff of Lyubov (11.5-14.5) % Plt Count (130-400) K/uL MPV (7.4-10.4) fL Immature Gran % (Auto) % Neut % (Auto) % Lymph % (Auto) % [place] % (Auto) % Eos % (Auto) % Baso % (Auto) % Reticulocyte % (Auto) 1.6 (0.5-2.0) % Neut # (Auto) (1.4-6.5) K/uL Lymph # (Auto) (1.2-3.4) K/uL [place] # (Auto) (0.11-0.59) K/uL Eos # (Auto) (0-0.5) K/uL Baso # (Auto) (0-0.2) K/uL Reticulocyte # 0.05 (0.02-0.10) 10^6/uL Immature Gran # (Auto) (0.00-0.02) K/uL PT (9.0-12.0) Seconds INR (0.9-1.1) Sodium 124 L (136-145) mmol/L Potassium 3.4 L (3.5-5.1) mmol/L Chloride 95 L (98-107) mmol/L Carbon Dioxide 22 (21-32) mmol/L Anion Gap 7 (3-11) BUN 12 (6-23) mg/dl Creatinine 0.66 (0.6-1.4) mg/dl Est Cr Clr Drug Dosing 91.5 ml/min Est GFR ( Amer) 117.6 ml/min Est GFR (Non-Af Amer) 101.5 ml/min BUN/Creatinine Ratio 18.2 (10-20) Glucose 128 H (70-99(Fasting)) mg/dl Calcium 8.5 (8.5-10.1) mg/dl Magnesium (1.7-2.4) mg/dl Iron (35-175) mcg/dl Unsaturated IBC (155-355) mcg/dl Transferrin (200-360) mg/dl Ferritin (8-388) ng/ml Total Bilirubin (0.2-1.0) mg/dl AST (13-39) U/L ALT (7-52) U/L Alkaline Phosphatase (34-104) U/L Total Protein (6.0-8.3) gm/dl Albumin (3.4-5.0) gm/dl Globulin (2.5-4.0) gm/dl Albumin/Globulin Ratio (0.9-2) Amylase Cancelled Lipase Cancelled CA 19-9 Antigen Vitamin B12 (211-911) pg/ml Folate (>5.38) ng/ml
[2021-04-20] MEDS: ASPIRIN 81 MG ECTAB PO SCH (10:27)
[2021-04-20] MEDS: VALSARTAN/SACUBITRIL 26/24MG TAB PO SCH (10:28)
[2021-04-20] MEDS: TICAGRELOR 90 MG TAB PO SCH (10:28)
[2021-04-20] MEDS ORDERED: SODIUM CHLORIDE 1 GM TABLET PO ONE (11:39)
[2021-04-20] MEDS ORDERED: ONDANSETRON INJ 2 MG/ML 2 ML VIAL ONE (13:15)
[2021-04-20] MEDS ORDERED: MIDAZOLAM HCL 1 MG/ML 2ML VIAL ONE (13:15)
[2021-04-20] MEDS ORDERED: DEXAMETHASONE SOD INJ 4 MG/ML VIAL ONE (13:15)
[2021-04-20] MEDS ORDERED: LIDOCAINE 2% 2 ML VIAL/AMP(20MG/ML) INFIL ONE (13:15)
[2021-04-20] MEDS ORDERED: PROPOFOL IV EMULSION 10 MG/ML 20 ML VIAL IV ONE (13:15)
[2021-04-20] MEDS ORDERED: fentaNYL citrate 100 MCG/2 ML VIAL ONE (13:15)
[2021-04-20] MEDS ORDERED: ONDANSETRON INJ 2 MG/ML 2 ML VIAL IV PRN (13:40)
[2021-04-20] MEDS ORDERED: fentaNYL citrate 100 MCG/2 ML VIAL IV PRN (13:40)
[2021-04-20] MEDS ORDERED: ePHEDrine sulfate 50 MG/ML AMP IV PRN (13:40)
[2021-04-20] MEDS ORDERED: ATROPINE SULFATE 0.1 MG/ML 10ML SYR IV PRN (13:40)
[2021-04-20] MEDS ORDERED: INDOMETHACIN 50 MG SUPP PR ONE (13:45)
--- NOTE | 2021-04-20 13:46 | History & Physical Bridge Note ---
Date of Service April 20, 2021 History & Physical Bridge Note I have examined the patient, reviewed the History & Physical and in the interval since the performance of the History & Physical I have noted the following changes of clinical significance: no changes noted. This patient had presented with an obstructive pancreatic mass and has been in the hospital for several days. We are planning to do ERCP, endoscopic ultrasound and upper endoscopy today for further evaluation. We have discussed the risks and benefits to include bleeding, infection, perforation, pancreatitis, failed biliary cannulation, insufficient cellularity and the need for follow-up studies.
[2021-04-20] MEDS ORDERED: HEPARIN (PORCINE) 1000 UNIT/ML 10 ML (CATH LAB USE ONLY) ONE (14:18)
[2021-04-20] MEDS ORDERED: BUPIVACAINE 0.5 % 5 MG/1 ML MPF 30ML VIAL ONE (14:18)
--- NOTE | 2021-04-20 14:24 | History & Physical Bridge Note ---
Date of Service April 20, 2021 History & Physical Bridge Note I have examined the patient, reviewed the History & Physical and in the interval since the performance of the History & Physical I have noted the following changes of clinical significance: no changes noted discussed options and risks ( bleeding, infection,vascular injury, pneumothorax, port malfunction or infection requiring explant, dvt/pe/mi/cva etc.... questions answered. ok to proceed.
--- NOTE | 2021-04-20 15:39 | Post Operative Brief Note ---
Immediate Post Op Note v1 Date of Surgery April 20, 2021 Pre & Post Diagnosis Operation Date: 04/19/21 10:30 <No data on this case meets the specified criteria> Operation Date: 04/20/21 12:50 Pre-Op Diagnosis: Pancreatic Mass I identified the patient and participated in the time-out.: Yes Procedure Operation Date: 04/20/21 12:50 Actual Procedures p Esophagogastroduodenoscopy Biopsy Cytology(Not Applicable) - Alex Marquis DO p Endoscopic Ultrasonography Upper(Not Applicable) - Alex Marquis DO s Endoscopic Retrograde Cholangiopancreato(Not Applicable) - Alex Marquis DO Surgeon Alex Marquis DO [place] none Estimated Blood Loss 0 Findings Consistent with Post-Op Diagnosis
--- NOTE | 2021-04-20 15:41 | Communication Note ---
Date of Service: April 20, 2021 The patient underwent upper endoscopy, endoscopic ultrasound and ERCP this afternoon. Findings Ulcer of the duodenal bulb, biopsied Diffuse gastritis of the stomach, biopsied 33 mm head of pancreas mass Multiple lymph nodes in the region of the celiac and gastrohepatic ligament, FNA performed Covered metal biliary stent placed for drainage Recommendations Clear liquid diet Ciprofloxacin 500 mg twice daily for 5 days for prophylaxis Hold Brilanta for 72 hours please OP medical oncology referral Please call with any questions
--- NOTE | 2021-04-20 15:44 | GI REPORT ---
Patient Name: Dom Blank Procedure Date: 04/20/2021 2:25 PM Date of : 1955 Admit Type: Inpatient Age: 66 Gender: Male Attending MD: Alex Marquis DO Procedure: Upper GI endoscopy Providers: Alex Marquis DO Referring MD: Almas Lanier Iv, M.d., Cade Deal Indications: Abnormal CT of the GI tract Medicines: General Anesthesia Complications: No immediate complications. Estimated blood loss: Minimal. Estimated Blood Loss: Estimated blood loss was minimal. Procedure: Pre-Anesthesia Assessment: - Prior to the procedure, a History and Physical was performed, and patient medications, allergies and sensitivities were reviewed. The patient's tolerance of previous anesthesia was reviewed. - The risks and benefits of the procedure and the sedation options and risks were discussed with the patient. All questions were answered and informed consent was obtained. - Patient identification and proposed procedure were verified prior to the procedure by the physician, the nurse and the mediation commissioner. The procedure was verified in the procedure room. - Pre-procedure physical examination revealed no contraindications to sedation. - ASA Grade Assessment: IV - A patient with severe systemic disease that is a constant threat to life. - After reviewing the risks and benefits, the patient was deemed in satisfactory condition to undergo the procedure. - The anesthesia plan was to use general anesthesia. - Immediately prior to administration of medications, the patient was re-assessed for adequacy to receive sedatives. - The heart rate, respiratory rate, oxygen saturations, blood pressure, adequacy of pulmonary ventilation, and response to care were monitored throughout the procedure. - The physical status of the patient was re-assessed after the procedure. After obtaining informed consent, the endoscope was passed under direct vision. Throughout the procedure, the patient's blood pressure, pulse, and oxygen saturations were monitored continuously. The Endoscope was introduced through the mouth, and advanced to the third part of duodenum. The upper GI endoscopy was accomplished without difficulty. The patient tolerated the procedure well. Findings: The upper third of the esophagus and middle third of the esophagus were normal. The esophagus and gastroesophageal junction were examined with white light. There were esophageal mucosal changes suspicious for short-segment Clemente's esophagus. These changes involved the mucosa at the upper extent of the gastric folds (44 cm from the incisors) extending to the Z-line (42 cm from the incisors). The maximum longitudinal extent of these esophageal mucosal changes was 2 cm in length. Biopsies were taken with a cold forceps for histology. The pathology specimen was placed into Bottle C. Diffuse moderate inflammation characterized by adherent blood, congestion (edema), erythema and granularity was found in the entire examined stomach. Biopsies were taken with a cold forceps for histology. The pathology specimen was placed into Bottle B. Estimated blood loss was minimal. One non-obstructing non-bleeding superficial duodenal ulcer with no stigmata of bleeding was found in the duodenal bulb. Biopsies were taken with a cold forceps for histology. The pathology specimen was placed into Bottle A. Estimated blood loss was minimal. Impression: - Normal upper third of esophagus and middle third of esophagus. - Esophageal mucosal changes suspicious for short-segment Clemente's esophagus. Biopsied. - Gastritis. Biopsied. - Non-obstructing non-bleeding duodenal ulcer with no stigmata of bleeding. Biopsied. Recommendation: - Perform an upper endoscopic ultrasound (UEUS) today. - Await pathology results. - Use Protonix (pantoprazole) 40 mg PO daily for 12 weeks. Alex Marquis D.O. Alex Marquis, 04/20/2021 3:44:05 PM This report has been signed electronically. Note Initiated On: 04/20/2021 2:25 PM Number of Addenda: 0 I attest to the content of the Intraoperative Record and orders documented therein, exceptions below {[id number]}
--- NOTE | 2021-04-20 15:46 | GI REPORT ---
Patient Name: Dom Blank Procedure Date: 04/20/2021 2:22 PM Date of : 1955 Admit Type: Inpatient Age: 66 Gender: Male Attending MD: Alex Marquis DO Procedure: Upper EUS Providers: Alex Marquis DO Referring MD: Almas Lanier Iv, M.d., Cade Deal Indications: Suspected mass in pancreas on CT scan Medicines: General Anesthesia Complications: No immediate complications. Estimated blood loss: Minimal. Estimated Blood Loss: Estimated blood loss was minimal. Procedure: Pre-Anesthesia Assessment: - Prior to the procedure, a History and Physical was performed, and patient medications, allergies and sensitivities were reviewed. The patient's tolerance of previous anesthesia was reviewed. - The risks and benefits of the procedure and the sedation options and risks were discussed with the patient. All questions were answered and informed consent was obtained. - Patient identification and proposed procedure were verified prior to the procedure by the physician, the nurse and the circular knife machine cutter. The procedure was verified in the procedure room. - Pre-procedure physical examination revealed no contraindications to sedation. - ASA Grade Assessment: IV - A patient with severe systemic disease that is a constant threat to life. - After reviewing the risks and benefits, the patient was deemed in satisfactory condition to undergo the procedure. - The anesthesia plan was to use general anesthesia. - Immediately prior to administration of medications, the patient was re-assessed for adequacy to receive sedatives. - The heart rate, respiratory rate, oxygen saturations, blood pressure, adequacy of pulmonary ventilation, and response to care were monitored throughout the procedure. - The physical status of the patient was re-assessed after the procedure. After obtaining informed consent, the endoscope was passed under direct vision. Throughout the procedure, the patient's blood pressure, pulse, and oxygen saturations were monitored continuously. The Endosonoscope was introduced through the mouth, and advanced to the second part of duodenum. The upper EUS was accomplished without difficulty. The patient tolerated the procedure well. Findings: ENDOSONOGRAPHIC FINDING: : There was dilation in the common bile duct which measured up to 15 mm. Moderate hyperechoic material consistent with sludge was visualized endosonographically in the gallbladder. There was abnormal echogenicity in the visualized portion of the liver. This area was notable for diffue intrahepatic ductal dilation. An irregular mass was identified in the pancreatic head. The mass was hypoechoic. The mass measured 33 mm by 32 mm in maximal cross-sectional diameter. The outer margins were irregular. There was sonographic evidence suggesting invasion into the portal vein (manifested by invasion). An intact interface was seen between the mass and the celiac trunk suggesting a lack of invasion. The remainder of the pancreas was examined. The endosonographic appearance of parenchyma and the upstream pancreatic duct indicated duct dilation, a maximum duct diameter of 4 mm and parenchymal atrophy. A few enlarged lymph nodes were visualized in the celiac region (level 20) extending into the gastrohepatic ligament. The largest measured 8 mm by 10 mm in maximal cross-sectional diameter. The nodes were oval, hypoechoic and had well defined margins. Fine needle aspiration for cytology was performed. Color Doppler imaging was utilized prior to needle puncture to confirm a lack of significant vascular structures within the needle path. Four passes were made with the 22 gauge needle using a transgastric approach. A stylet was used. A senior medical billing specialist was present to evaluate the adequacy of the specimen. Final cytology results are pending. Estimated blood loss was minimal. Impression: - There was dilation in the common bile duct which measured up to 15 mm. - Hyperechoic material consistent with sludge was visualized endosonographically in the gallbladder. - There was abnormal echogenicity in the visualized portion of the liver. This was. - A mass was identified in the pancreatic head. This was staged T3 N1 Mx by endosonographic criteria. The staging applies if malignancy is confirmed. - A few enlarged lymph nodes were visualized in the celiac region (level 20). Fine needle aspiration performed. Recommendation: - Perform an ERCP today. Alex Marquis D.O. Alex Marquis, 04/20/2021 3:46:00 PM This report has been signed electronically. Note Initiated On: 04/20/2021 2:22 PM Number of Addenda: 0 I attest to the content of the Intraoperative Record and orders documented therein, exceptions below {[id number]}
--- NOTE | 2021-04-20 15:53 | GI REPORT ---
Patient Name: Dom Blank Procedure Date: 04/20/2021 2:20 PM Date of : 1955 Admit Type: Inpatient Age: 66 Gender: Male Attending MD: Alex Marquis DO Procedure: ERCP Providers: Alex Marquis DO Referring MD: Almas Lanier Iv, M.d., Cade Deal Indications: Jaundice, Tumor of the head of pancreas Medicines: General Anesthesia, Cipro 400 mg IV Complications: No immediate complications. Estimated blood loss: Minimal. Estimated Blood Loss: Estimated blood loss was minimal. Procedure: Pre-Anesthesia Assessment: - Prior to the procedure, a History and Physical was performed, and patient medications, allergies and sensitivities were reviewed. The patient's tolerance of previous anesthesia was reviewed. - The risks and benefits of the procedure and the sedation options and risks were discussed with the patient. All questions were answered and informed consent was obtained. - Patient identification and proposed procedure were verified prior to the procedure by the physician, the nurse and the attending urologist. The procedure was verified in the procedure room. - Pre-procedure physical examination revealed no contraindications to sedation. - ASA Grade Assessment: IV - A patient with severe systemic disease that is a constant threat to life. - After reviewing the risks and benefits, the patient was deemed in satisfactory condition to undergo the procedure. - The anesthesia plan was to use general anesthesia. - Immediately prior to administration of medications, the patient was re-assessed for adequacy to receive sedatives. - The heart rate, respiratory rate, oxygen saturations, blood pressure, adequacy of pulmonary ventilation, and response to care were monitored throughout the procedure. - The physical status of the patient was re-assessed after the procedure. After obtaining informed consent, the scope was passed under direct vision. Throughout the procedure, the patient's blood pressure, pulse, and oxygen saturations were monitored continuously. The Duodenoscope was introduced through the mouth, and advanced to the duodenum and used to inject contrast into the bile duct. The ERCP was accomplished without difficulty. The patient tolerated the procedure well. Findings: The unit supervisor film was normal. The esophagus was successfully intubated under direct vision without detailed examination of the pharynx, larynx, and associated structures, and upper GI tract. The upper GI tract was grossly normal. The major papilla was normal. The bile duct was deeply cannulated with the short-nosed traction sphincterotome and 0.035 in angled Acrobat 2 guidewire (PD not injected or cannulated today). Contrast was injected. I personally interpreted the bile duct images. Contrast extended to the hepatic ducts. The main bile duct was severely dilated, with a mass causing an obstruction (seen on CT and during EUS). The largest diameter was 15 mm. The lower third of the main bile duct contained a single segmental stenosis 30 mm in length correlating with the pancreatic mass. Biliary sphincterotomy was made with a monofilament Fusion OMNI sphincterotome using ERBE electrocautery. There was no post-sphincterotomy bleeding. An attempt to obtain brush cytology was made however due to the long position of the endoscope the cytology brush from [employer] would not open. therefore, One 10 Fr by 8 cm covered metal stent was placed 7.5 cm into the common bile duct ([place] Viabil [id number], [id number]). Dark, thick bile flowed through the stent. The stent was in good position. The total fluoroscopy exposure time was 1 minute and 40 seconds. The endoscope was withdrawn from the patient. Indomethacin 100 mg was given via suppository to decrease the risk of post-ERCP pancreatitis (PEP). Impression: - The major papilla appeared normal. - A single segmental biliary stricture was found in the lower third of the main bile duct. The stricture was malignant appearing. - A biliary sphincterotomy was performed. - One covered [place] Viabil metal stent was placed into the common bile duct. - Indomethacin given to decrease risk of post-ERCP pancreatitis. Recommendation: - Avoid aspirin and nonsteroidal anti-inflammatory medicines for 1 week. - Please hold Brilanta for 72 hours - Cipro (ciprofloxacin) 500 mg PO BID for 5 days. - Refer to an oncologist and Surgical oncologist Alex Marquis D.O. Alex Marquis DO 04/20/2021 3:52:43 PM This report has been signed electronically. Note Initiated On: 04/20/2021 2:20 PM Number of Addenda: 0 I attest to the content of the Intraoperative Record and orders documented therein, exceptions below {[id number]}
--- NOTE | 2021-04-20 16:34 | Fluoroscopy Report ---
FL ERCP biliary ductal CLINICAL HISTORY: ERCP IN OR TECHNIQUE: 7 views were obtained with the C-arm in the OR with the above procedure. Total fluoroscopy time was 98 seconds. Total skin dose was 16.25 mGy. Comparison: None available at the time of this dictation. FINDINGS/IMPRESSION: Intraoperative images were obtained of ERCP. Please correlate with intraoperative fluoroscopy and operative report. ACT 112: Negative or not required by law. Electronically signed by: Ryland Ross M.D. 04/20/2021 4:33 PM
--- NOTE | 2021-04-20 16:35 | Operative Report ---
[facility] Post Operative Report Pre & Post Diagnosis Operation Date: 04/19/21 10:30 <No data on this case meets the specified criteria> Operation Date: 04/20/21 12:50 Pre-Op Diagnosis: Pancreatic Mass Post-Op Diagnosis: Pancreatic Mass I identified the patient and participated in the time-out.: Yes Procedure Operation Date: 04/19/21 10:30 <No data on this case meets the specified criteria> Operation Date: 04/20/21 12:50 Actual Procedures p Esophagogastroduodenoscopy Biopsy Cytology(Not Applicable) - Alex Marquis DO p Endoscopic Ultrasonography Upper(Not Applicable) - Alex Marquis DO s Endoscopic Retrograde Cholangiopancreato(Not Applicable) - DO malathi Pena Left Subclavian Vein Aport Insertion(Left) - Gordon Shah DO Surgeon Gordon Shah, Music Teacher none Estimated Blood Loss 10 Findings Consistent with Post-Op Diagnosis Specimens none Description of Procedure After informed consent was obtained the patient was taken the operating room placed in supine position. IV sedation was administered by anesthesia and titrated to effect. Both arms were then tucked. The upper chest area was sterilely prepped and draped in usual fashion. We then used a 15 blade scalpel to make a horizontal incision below the angle of the left clavicle. I carried this down through the soft tissue using electrocautery to the pectoralis fascia. I then used blunt finger dissection to create a small pocket. I then used an 18-gauge finder needle to access the subclavian vein without difficulty. A guidewire was advanced under fluoroscopy into the superior vena cava. We then measured and cut the catheter to appropriate size and then thoroughly flushed the entire system with a heparin solution. Next we advanced a vascular dilator with peel-away sheath over the guidewire again using fluoroscopy. We then pulled out the dilator as well as the guidewire leaving the peel-away sheath in place. The catheter was advanced through the peel-away sheath and the port itself was placed into the housing pocket. We then peeled the sheath away leaving the catheter. We verified position using fluoroscopy. The catheter was then flushed with heparin solution. It withdrew dark venous blood easily. The port was then secured to the muscle using 0 Ethibond with 3 point fixation. The wound was thoroughly irrigated and closed in 2 layers using 3-0 Monocryl for both layers. A sterile dressing was applied. The patient was awakened and transferred to recovery in stable condition. A postoperative portable chest x- ray is currently pending to rule out pneumothorax and the verify catheter position. I attest to the content of the Intraoperative Record and any orders documented therein. Any exceptions are noted below. I attest to the content of the Intraoperative Record and any orders documented therein. Any exceptions are noted below.
--- NOTE | 2021-04-20 16:42 | Anesthesiology Progress Note ---
Date of Service April 20, 2021 Anesthesia Post Procedure Vital Signs Vital Signs: Temp Pulse Resp BP Pulse Ox Pulse Ox 04/20/21 07:23 98.1 F 71 16 101/60 98 04/20/21 00:57 104/72 04/19/21 22:30 98.2 F 71 16 95/47 L 98 04/19/21 20:50 98 Pain Intensity Bilateral Abdomen: Pain Intensity: 0 Transfer of Care Handoff Completed per policy Notes Mental Status: alert / awake / arousable and participated in evaluation Patient Amnestic to Procedure: Yes Nausea / Vomiting: adequately controlled Pain: adequately controlled Airway Patency, RR, SpO2: stable & adequate BP & HR: stable & adequate Hydration State: stable & adequate Anesthetic Complications: no major complications apparent and Pt Satisfied with anesthetic care
--- NOTE | 2021-04-20 17:11 | XRay Report ---
XR chest 1V portable HISTORY: 66 years-old Male post port placement status post placement of a left subclavian Infuse-a-P ort catheter COMPARISON: Chest CT 04/17/2021 TECHNIQUE: AP view of the chest FINDINGS: Left subclavian Yzajir-w-Efjl catheter distal tip terminates in the expected location of the upper SV C. No pneumothorax. Cardiomediastinal and hilar silhouettes are within normal limits. Coronary arteri al stent. Emphysema with chronic appearing interstitial coarsening. Degenerative changes of the shoul ders and spine. IMPRESSION: Status post placement of a left subclavian Hgqkmo-h-Yscp catheter. No postprocedural pneu mothorax. ACT 112: Negative or not required by law. The above report was generated using voice recognition software. It may contain grammatical, syntax o r spelling errors. Electronically signed by: Jacoby Adler M.D. 04/20/2021 5:10 PM
--- NOTE | 2021-04-20 17:12 | Electrocardiogram Report ---
Test Reason : Blood Pressure : / mmHG Vent. Rate : 068 BPM Atrial Rate : 068 BPM P-R Int : 138 ms QRS Dur : 090 ms QT Int : 416 ms P-R-T Axes : 075 011 085 degrees QTc Int : 442 ms Sinus rhythm with Premature atrial complexes Low voltage QRS Cannot rule out Anteroseptal infarct , age undetermined Abnormal ECG No previous ECGs available Confirmed by Dario Phillips ([id number]) on 04/20/2021 5:12:07 PM Referred By: REFERRED SELF Confirmed By:Dario Phillips
--- NOTE | 2021-04-20 18:04 | Hospitalist Progress Note ---
Date of Service April 20, 2021 Assessment & Plan (1) Pancreatic mass: Plan: 66 y/o WF presented with progressive fatigue, 20 lbs weight loss, and weakness * Radiographic evidence of pancreatic head mass (concerning for adenocarcinoma) resulting in obstruction of the common bile duct and pancreatic ducts. In addition, there does appear to be mildly enlarged portacaval and gastrohepatic adenopathy suspicious for metastatic disease. * GI consulted and for ERCP with stent insertion today. When initially discussed with GI, they said he was not a candidate for a Whipple procedure given metastatic disease in surrounding nodes * Discussed with oncology who has since evaluated patient while in house (appreciate recommendations). CT report reviewed and only suspicious for metastatic disease which does not completely rule out a possible Whipple procedure. Oncology did recommend palliative chemotherapy to help shrink the mass and then potentially proceed with a Whipple procedure. Mediport insertion recommended to initiate chemotherapy. Oncology is recommending outpatient referral to [facility] to discuss candidacy for Whipple--greatly appreciate recommendations and assistance * Consulted Dr. Shah who plans on Mediport insertion today following his ERCP procedure --> GI did reach out and said procedure went well. Could have clears today. Recommending Cipro X 5 days along with PPI for duodenal ulcer seen (2) Abnormal LFTs: Plan: * presenting LFT abnl (TB: 21.2, AST: 330, ALT: 245, ALK PHOS: 1500)--> due to obstructing mass * See above * Stopped statin and Tylenol and recommend avoiding alcohol * GI consulted and plan is for ERCP with biliary and pancreatic stent along with biopsy of mass * Follow labs (3) Hyponatremia: Plan: * Presenting sodium Na+ 126 but dropped to 124 --patient asymptomatic. No nausea, vomiting, weakness, lethargy, confusion. 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 Ideally would get this closer to 130 if able * May need to consider nephrology consult if no improvement (4) Anemia: Plan: * Hemoglobin 10-11. Was 13.3 in December * Obtained work-up including iron studies, reticulocyte count, folate and B12 * Could have dilutional component in the setting of SIADH * Per GI, did appear to have a duodenal ulcer during ERCP today for which pantoprazole started. Will stop aspirin and his Lovenox (that is being utilized for DVT prophylaxis) (5) Duodenal ulcer: Plan: * Final OR report pending but GI did reach out and patient found to have a duodenal ulcer during ERCP * May be contributing to anemia * As outlined above, stop aspirin * Was receiving Lovenox for DVT prophylaxis. Stop this as well (6) CAD (coronary artery disease): Plan: * CAD with poor EF (25-30%) * continue entresto, Brillinta (7) Dyslipidemia: Plan: * hold statin given hyperbilirubinemia (8) Tobacco abuse: Plan: * Nicotine patch ordered. * Counseled on smoking cessation. (9) Severe protein-calorie malnutrition: Plan: * Noted Plan: Patient adamant that he be discharged today. Lengthy discussion with him that he is not quite medically ready for discharge. To have ERCP and Mediport insertion later today and his sodium remains low. Although asymptomatic, would like to see this continue to uptrend before discharging him to home. Despite this, he is adamant that he be discharged. I explained that he cannot be kept in the hospital. He understands. He does have capacity to leave AMA should he so choose. Admission and Anticipated Discharge Date Admission Date: April 17, 2021 Subjective Patient seen on daily rounds today. Going for ERCP and Mediport insertion but adamant he be discharged following these procedures. He denies fevers, chills, chest pain, shortness of breath, abdominal pain, nausea or vomiting. I explained that he is not medically ready for discharge as I would like to see his labs start to downtrend and his sodium continued to uptrend. Despite this, he says he is leaving today with or without a discharge order. Review of Systems Review of Systems: All systems reviewed and are unremarkable except as noted in HPI and below Denies fevers, chills, headache, nasal congestion, sore throat, cough, chest pain, shortness of breath, palpitations, orthopnea, PND, abdominal pain, nausea, vomiting, diarrhea, constipation, dysuria, hematuria, frequency, back pain, joint pain or swelling, easy bruising or bleeding, skin lesions or rashes. Physical Exam Physical Exam: General: Resting comfortably in his hospital bed. Appears chronically but not acutely ill. He is cachectic. NAD. HEENT: Head is AT/NC scleral icterus. Buccal mucosa is moist and pink Neck: No JVD. Negative hepatojugular reflex Cardiac: RRR but distant Lungs: CTA without W/R/R Abdomen: Normoactive X4. Soft and nontender in all quadrants. Extremities: No peripheral clubbing cyanosis or edema Neuro: A&O X4. Cranial nerves II through XII are grossly intact. No focal neuro deficits Skin: significant jaundice noted Psych: Appropriate affect. Pleasant and cooperative Results & Data Results & Data ([facility]) Vital Signs (Past 12 Hours) Vital Signs Temp Pulse Pulse Resp BP Pulse Ox 04/20/21 17:28 36.1 C L 72 16 105/66 99 04/20/21 17:23 36.4 C L 72 18 108/65 99 04/20/21 16:55 36.4 C L 76 20 111/67 97 04/20/21 16:45 76 16 96/57 L 97 04/20/21 16:35 75 16 101/64 100 04/20/21 16:27 36.1 C L 80 14 102/61 100 04/20/21 07:23 36.7 C 71 16 101/60 98 Laboratory Results 04/20/21 08:10 04/20/21 08:10 Total bilirubin 22.1 AST: 296 ALT: 238 Alkaline phosphatase: 1421 PG Care Time/CCT Total # of Minutes Spent Total Time Spent with Patient: Total time spent is greater than 50% in coordination of care (as documented) at patient's floor/unit and/or counseling patient: Coding Level of Care Code 35803 Subseq Hosp Care Lvl 3 Diagnoses Pancreatic mass K86.89 Abnormal LFTs R79.89 Hyponatremia E87.1 Anemia D64.9 CAD (coronary artery disease) I25.10 Dyslipidemia E78.5 Tobacco abuse Z72.0 Severe protein-calorie malnutrition E43 Duodenal ulcer K26.9
[2021-04-20] MEDS: NICOTINE 21 MG/24 HR TDSY TD SCH (18:10)
[2021-04-20 19:09] LABS: Potassium 3.8 mmol/L (3.5-5.1)
[2021-04-20 19:10] LABS: BUN Creatinine Ratio 18.3 (10-20); Calcium 8.9 mg/dl (8.5-10.1); Creatinine Clr Calc Pharmacy 85.1 ml/min; Est GFR (African American) 114.1 ml/min; Est GFR (Non-African American) 98.5 ml/min
[2021-04-20] MEDS ORDERED: PANTOprazole 40 MG TAB PO SCH (21:00)
--- NOTE | 2021-04-20 21:17 | Communication Note ---
Date of Service: April 20, 2021 Patient left AMA at 2042 tonight (04/20/21). I was called to bedside about patient's wish to leave. He states that it is because he has personal obligati ons to attend to. He is status post port placement and EGD this afternoon. Reviewed carlozam's note. Patient has capacity to leave. I reiterated the team's stance that patient should stay for further medical care. I counseled patient on the risks of leaving AMA, not limited to worsening of his liver and pancreas conditions, symptoms from hyponatremia (seizure, altered mentation), . Patient is aware of the downsides of leaving AMA. I have sent the prescription of cipro 500mg PO BID x 5 days and Protonix as per GI's recommendation. Patient will still need referral to outpatient [facility] for eval of possible Whipple.
--- NOTE | 2021-05-04 18:43 | Discharge Summary ---
Date of Service 04/30/21 Note not formally done until 05/04 as patient signed out AMA after my shift ended on 04/30. I was then off for 7 days so was unaware that he had done so. Was notified by STUART that I needed to prepare his discharge summary Admission HPI Per Admitting Provider Patient is a 66-year-old male with a past medical history of CAD, ischemic cardiomyopathy, tobacco use and alcohol use who presents today for evaluation of pancreatic mass found on an outpatient CT. Over the past month, patient has experienced extreme fatigue, a 20 pound weight loss, as well as frequent pale, floating stools and dark urine. He also reports an occasional throbbing pain in his left upper quadrant after meals. Friends also pointed out that his skin and eyes seemed to be yellow. This had prompted him to schedule a visit with his PCP who ordered an abdominal CT without contrast as well as several labs yesterday, 04/16. Patient received a call from PCP last evening that there is a pancreatic mass seen on scan and was referred to the ED for further evaluation. A repeat abdominal CT with contrast was performed in the ED revealed an ill- defined hypodense pancreatic head mass measuring up to 2 cm, suggestive of adenocarcinoma. This results in obstruction of the pancreatic and common bile ducts. No evidence of vascular encasement or occlusion. Gastroenterology consultation with ERCP and tissue sampling recommended. Mildly enlarged hawk caval gastropathic adenopathy, suspicious for metastatic disease. Chest CT was also ordered, which revealed a few pulmonary nodules seen measuring up to 4 mm, no lymphadenopathy seen, emphysema and pulmonary hypertension noted. Patient smokes 1 to 2 packs of cigarettes per day and had previously been drinking 3-4 drinks on most evenings, however has not had a drink in 1 month. Principal Diagnosis 1. Pancreatic massexact etiology unclear 2. Abnormal LFTss/p stent 3. Hyponatremialikely SIADH secondary to presumed pancreatic CA 4. Anemia 5. Duodenal ulcer 6. Tobacco abuse 7. Severe protein calorie malnutrition Discharge Exam General: Resting comfortably in his hospital bed. Appears chronically but not acutely ill. He is cachectic. NAD. HEENT: Head is AT/NC scleral icterus. Buccal mucosa is moist and pink Neck: No JVD. Negative hepatojugular reflex Cardiac: RRR but distant Lungs: CTA without W/R/R Abdomen: Normoactive X4. Soft and nontender in all quadrants. Extremities: No peripheral clubbing cyanosis or edema Neuro: A&O X4. Cranial nerves II through XII are grossly intact. No focal neuro deficits Skin: significant jaundice noted Psych: Appropriate affect. Pleasant and cooperative Discharge Data Allergies Allergy/AdvReac Type Severity Reaction Status Date / Time No Known Drug Allergies Allergy Verified 04/24/21 14:09 Consultations 04/17/21 18:11 Consult Gastroenterology Routine 04/19/21 10:22 Consult Oncology Routine 04/19/21 13:41 Consult General Surgery Routine Procedures Performed Operation Date: 04/19/21 10:30 <No data on this case meets the specified criteria> Operation Date: 04/20/21 12:50 Actual Procedures p Endoscopic Ultrasonography Upper(Not Applicable) - DO malathi Pena Endoscopic Retrograde Cholangiopancreato(Not Applicable) - DO malathi Pena Left Subclavian Vein Aport Insertion(Left) - DO malathi Crews Esophagogastroduodenoscopy Biopsy Cytology(Not Applicable) - Alex Marquis DO Ordered Studies 04/17/21 12:59 CT abd pelvis IV con only Stat CT chest diagnostic w con Stat 04/20/21 FL fluoro (infusaport) to 1 hr Routine 04/20/21 12:50 FL ERCP biliary ductal Routine 04/20/21 13:45 US upper EUS PACS images Routine Hospital Course (1) Pancreatic mass: 66 y/o WF presented with progressive fatigue, 20 lbs weight loss, and weakness * Radiographic evidence of pancreatic head mass (concerning for adenocarcinoma) resulting in obstruction of the common bile duct and pancreatic ducts. In addition, there does appear to be mildly enlarged portacaval and gastrohepatic adenopathy suspicious for metastatic disease. * GI consulted and for ERCP with stent insertion today. When initially discussed with GI, they said he was not a candidate for a Whipple procedure given metastatic disease in surrounding nodes * Discussed with oncology who has since evaluated patient while in house (appreciate recommendations). CT report reviewed and only suspicious for metastatic disease which does not completely rule out a possible Whipple procedure. Oncology did recommend palliative chemotherapy to help shrink the mass and then potentially proceed with a Whipple procedure. Mediport insertion recommended to initiate chemotherapy. Oncology is recommending outpatient referral to [facility] to discuss candidacy for Whipple--greatly appreciate recommendations and assistance * Consulted Dr. Shah who plans on Mediport insertion today following his ERCP procedure --> GI did reach out and said procedure went well. Could have clears today. Recommending Cipro X 5 days along with PPI for duodenal ulcer seen (2) Abnormal LFTs: * presenting LFT abnl (TB: 21.2, AST: 330, ALT: 245, ALK PHOS: 1500)--> due to obstructing mass * See above * Stopped statin and Tylenol and recommend avoiding alcohol * GI consulted and plan is for ERCP with biliary and pancreatic stent along with biopsy of mass * Follow labs (3) Hyponatremia: * Presenting sodium Na+ 126 but dropped to 124 --patient asymptomatic. No nausea, vomiting, weakness, lethargy, confusion. 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 Ideally would get this closer to 130 if able * May need to consider nephrology consult if no improvement (4) Anemia: * Hemoglobin 10-11. Was 13.3 in December * Obtained work-up including iron studies, reticulocyte count, folate and B12 * Could have dilutional component in the setting of SIADH * Per GI, did appear to have a duodenal ulcer during ERCP today for which pantoprazole started. Will stop aspirin and his Lovenox (that is being utilized for DVT prophylaxis) (5) Duodenal ulcer: * Final OR report pending but GI did reach out and patient found to have a duodenal ulcer during ERCP * May be contributing to anemia * As outlined above, stop aspirin * Was receiving Lovenox for DVT prophylaxis. Stop this as well (6) CAD (coronary artery disease): * CAD with poor EF (25-30%) * continue entresto, Brillinta (7) Dyslipidemia: * hold statin given hyperbilirubinemia (8) Tobacco abuse: * Nicotine patch ordered. * Counseled on smoking cessation. (9) Severe protein-calorie malnutrition: * Noted Patient adamant that he be discharged today. Lengthy discussion with him that he is not quite medically ready for discharge. To have ERCP and Mediport insertion later today and his sodium remains low. Although asymptomatic, would like to see this continue to uptrend before discharging him to home. Despite this, he is adamant that he be discharged. I explained that he cannot be kept in the hospital. He understands. He does have capacity to leave AMA should he so choose. Prior to me leaving for the day, he was agreeable to stay. Apparently, after my shift ended in late into the evening, he decided to sign out AGAINST MEDICAL ADVICE. Total Time Total Time Spent Total Time Spent (In Minutes): 15 Discharge Plan Discharge Items Patient Disposition: Against Medical Advice Reason For Visit: PANCREATIC MASS Activity: Per Instructions section Non-emergency contact: Primary Care Provider and Oncologist Follow-up/Referrals: Cade Deal MD [Primary Care Provider] - (hosp f/u (left AMA) within 1 week) Addtl Sales Support Rep Provider Instructions: You are leaving against medical advice. I havee sent the prescriptions for the 5 days of antibiotic to your pharmacy. I have also sent the Protonix. Per the GI doctor's rec, no NSAIDs or aspirin for 1 week. Hold the Brillinta for 72 hours. Please follow up with your PCP, oncologist, and with [facility] (for Whipple procedure eval). Pending Studies at Discharge: No Stand-Alone Forms: My [facility], Smoking Cessation Medications and DC Order Prescriptions: New pantoprazole 40 mg Tablet,Delayed Release (Dr/Ec) 40 mg PO BID 30 Days Qty: 60 RF: 0 Continued Entresto 24-26 mg tablet 1 tab PO BID Qty: 180 RF: 3 Brilinta 90 mg tablet 90 mg PO BID Qty: 180 RF: 3 aspirin [Ecotrin Low Strength] 81 mg tablet,delayed release (DR/EC) 81 mg PO DAILY Qty: 90 RF: 3 Hold Instructions: no asa or nsaids 1 week nitroglycerin [Nitrostat] 0.4 mg tablet, sublingual 0.4 mg SL Q5M PRN (Reason: chest pain) Qty: 20 RF: 5 No Action amoxicillin-pot clavulanate 875-125 mg tablet 1 tab PO BID Qty: 20 RF: 0 potassium chloride 10 mEq tablet extended release 10 meq PO DAILY Qty: 14 RF: 0 Discharge Orders: Left Against Medical Advice (Routine); Ordered 04/20/21 Ordered By: Ta Parker Admission Data Admit Date/Time: 04/17/21 16:19 Attending Provider: Almas Lanier Admit Provider: Almas Lanier Primary Care Provider: Cade Deal Other Providers: Cj Varela ; Laura Salazar ; Gordon Shah Other Interventions: Discharge Summary Assessment (RN) Last Done: 04/20/21 20:39 Coding Level of Care Code None Diagnoses Pancreatic mass K86.89 Abnormal LFTs R79.89 Hyponatremia E87.1 Anemia D64.9 Duodenal ulcer K26.9 CAD (coronary artery disease) I25.10 Dyslipidemia E78.5 Tobacco abuse Z72.0 Severe protein-calorie malnutrition E43
== END 2021-04-20 20:45 | disposition left against medical advice (07) | DRG 435 ==
LOC: ED 12:15 → 3N 16:19 → SUATTDRO 16:19 → 3N 18:01